=== PATIENT | female | born 1990 | race African-American/Black ===

== ENCOUNTER 2016-10-23 19:12 | Emergency (ER) | payer MEDICAID ==
[2016-10-23] MEDS ORDERED: DIPHENHYDRAMINE HCL 50 MG CAPSULE PO ONE (19:48)
[2016-10-23] MEDS ORDERED: PROCHLORPERAZINE MALEATE 10 MG TABLET PO ONE (19:48)
[2016-10-23] MEDS ORDERED: ONDANSETRON 4 MG TAB.RAPDIS PO ONE (19:49)
[2016-10-23] MEDS ORDERED: NAPROXEN 250 MG TABLET PO ONE (19:49)
--- NOTE | 2016-10-23 19:51 | ER Document Report ---
ED Medical Screen (RME) - General Chief Complaint: Headache >24 hrs old Stated Complaint: HEADACHE Notes: This 26-year-old obese female patient comes emergency room with a headache for the past 2 days. She noticed that her blood pressure was elevated. She had nausea and vomiting 2 today. She has felt dizzy the past 4 hours. She reports she does get headaches when her blood pressure goes up. Reviewing the prior visits her blood pressure is always elevated, only a little higher today than in the past. She does have a family history of hypertension. She has a blood pressure cuff at home but does not use it. She does not have a local medical doctor. The patient has the Mirena IUD. The left temporal and anterior forehead areas are quite tender to palpate. The right temporal area is less tender. There is not really any posterior cervical muscle tenderness to palpate. I have greeted and performed a rapid initial assessment of this patient. A comprehensive ED assessment and evaluation of the patient, analysis of test results and completion of the medical decision making process will be conducted by additional ED providers. TRAVEL OUTSIDE OF THE [place] IN LAST 30 DAYS: No - Related Data Allergies/Adverse Reactions: No Known Allergies Allergy (Verified 10/23/16 19:22) Home Medications: Current Home Medications No Home Medications 10/23/16 [History] Past Medical History Neurological Medical History: Denies: Hx Migraine Endocrine Medical History: Denies: Hx Diabetes Mellitus Type 1 Renal/ Medical History: Denies: Hx Peritoneal Dialysis - Immunizations Hx Diphtheria, Pertussis, Tetanus Vaccination: Yes Physical Exam - Vital signs Vitals: Temp Pulse Resp BP Pulse Ox 98.0 F 80 14 172/109 H 100 10/23/16 19:23 10/23/16 19:23 10/23/16 19:23 10/23/16 19:23 10/23/16 19:23 Course - Vital Signs Vital signs: Temp Pulse Resp BP Pulse Ox 98.0 F 80 14 172/109 H 100 10/23/16 19:23 10/23/16 19:23 10/23/16 19:23 10/23/16 19:23 10/23/16 19:23
[2016-10-23] MEDS ORDERED: NORMAL SALINE 1000 ML 1,000 ML IV ONE (20:29)
[2016-10-23] MEDS ORDERED: KETOROLAC TROMETHAMINE INJ/PF 30 MG/1 ML SDV IV ONE (20:29)
[2016-10-23] MEDS ORDERED: DIPHENHYDRAMINE HCL 50 MG/ML VIAL IV ONE (20:29)
[2016-10-23] MEDS ORDERED: PROCHLORPERAZINE EDISYLATE INJ 10 MG/2 ML VIAL IV ONE (20:29)
--- NOTE | 2016-10-23 20:31 | ER Document Report ---
ED General - General Chief Complaint: Headache >24 hrs old Stated Complaint: HEADACHE Notes: Patient is a 18-year-old female with past history of morbid obesity and hypertension who presents with a bifrontal headache that has been present for the past 2 days. She does describe it as a constant, dull, throbbing pain. Nothing improves the pain. States that loud sounds or moving worsens the pain. She has a history of similar headaches in the past. States the headache was gradual onset and got progressively worse after starting. She has not seen her primary care doctor regarding today's concerns. She denies any fever, confusion , neck pain, weakness or numbness. She has had associated vomiting and also notes she has had some diarrhea. TRAVEL OUTSIDE OF THE [place] IN LAST 30 DAYS: No - Related Data Allergies/Adverse Reactions: No Known Allergies Allergy (Verified 10/23/16 19:22) Home Medications: Current Home Medications No Home Medications 10/23/16 [History] Past Medical History - General Information source: Patient - Social History Smoking Status: Never Smoker Frequency of alcohol use: None Drug Abuse: None Lives with: Spouse/Significant other Family History: Reviewed & Not Pertinent Patient has suicidal ideation: No Patient has homicidal ideation: No Neurological Medical History: Denies: Hx Migraine Endocrine Medical History: Denies: Hx Diabetes Mellitus Type 1 Renal/ Medical History: Denies: Hx Peritoneal Dialysis - Immunizations Hx Diphtheria, Pertussis, Tetanus Vaccination: Yes Review of Systems - Review of Systems Notes: Constitutional: Negative for fever. HENT: Negative for sore throat. Eyes: Negative for visual changes. Cardiovascular: Negative for chest pain. Respiratory: Negative for shortness of breath. Gastrointestinal: Negative for abdominal pain, positive for vomiting Genitourinary: Negative for dysuria. Musculoskeletal: Negative for back pain. Skin: Negative for rash. Neurological: Positive for headaches, negative for weakness or numbness. 10 point ROS negative except as marked above and in HPI. Physical Exam - Vital signs Vitals: Temp Pulse Resp BP Pulse Ox 98.0 F 80 14 172/109 H 100 10/23/16 19:23 10/23/16 19:23 10/23/16 19:23 10/23/16 19:23 10/23/16 19:23 Interpretation: Hypertensive Notes: PHYSICAL EXAMINATION: GENERAL: Well-appearing, well-nourished and in no acute distress. HEAD: Atraumatic, normocephalic. EYES: Pupils equal round and reactive to light, extraocular movements intact, sclera anicteric, conjunctiva are normal. ENT: nares patent, oropharynx clear without exudates. Moist mucous membranes. NECK: Normal range of motion, supple without lymphadenopathy LUNGS: Breath sounds clear to auscultation bilaterally and equal. No wheezes rales or rhonchi. HEART: Regular rate and rhythm without murmurs ABDOMEN: Soft, nontender, normoactive bowel sounds. No guarding, no rebound. No masses appreciated. EXTREMITIES: Normal range of motion, no pitting or edema. No cyanosis. NEUROLOGICAL: Face symmetric. Tongue protrudes midline. Extraocular motions intact. Pupils are 2 mm and equally reactive. Normal speech, normal gait. 5 out of 5 strength in both the distal and proximal upper and lower extremities bilaterally. Sensation is grossly intact throughout. Finger to nose testing normal. Pronator drift normal. PSYCH: Normal mood, normal affect. SKIN: Warm, Dry, normal turgor, no rashes or lesions noted. Course - Re-evaluation Re-evalutation: 10/23/16 20:31 Presentation of a headache that appears to be most consistent with tension versus migrainous type headache. Headache was not maximal in onset, patient has no focal neurologic deficits, no nuchal rigidity, vital signs within normal limits, no papilledema, and patient is overall well in appearance. Based on clinical history and examination I do not suspect an acute subarachnoid hemorrhage, dural venous sinus thrombosis, acute meningitis, or intercranial mass. Given my low clinical suspicion for any acute life-threatening etiology, I do not feel advanced neuro imaging or laboratory testing is indicated at this time. Will proceed with headache cocktail and reassess. 10/23/16 21:14 Patient is now complete resolution of her headache. She is no longer vomiting has tolerated oral intake.At this time will discharge with return precautions and follow-up recommendations. Verbal discharge instructions given a the bedside and opportunity for questions given. Medication warnings reviewed. Patient is in agreement with this plan and has verbalized understanding of return precautions and the need for primary care follow-up in the next 24-72 hours. - Vital Signs Vital signs: Temp Pulse Resp BP Pulse Ox 98.6 F 80 17 162/94 H 100 10/23/16 21:21 10/23/16 21:21 10/23/16 21:21 10/23/16 21:21 10/23/16 21:21 - Laboratory Laboratory results interpreted by me: 10/23/16 21:00 Urine Protein 30 H Urine Ketones TRACE H Urine Ascorbic Acid 40 H Discharge - Discharge Clinical Impression: Headache Qualifiers: Headache type: unspecified Headache chronicity pattern: acute headache Intractability: not intractable Qualified Code(s): R51 - Headache Condition: Good Disposition: HOME, SELF-CARE Additional Instructions: You have been seen in the Emergency Department (ED) for a headache. Please use Tylenol (acetaminophen) or Motrin (ibuprofen) as needed for symptoms, but only as written on the box. As we have discussed, please follow up with your primary care doctor as soon as possible regarding today's ED visit and your headache symptoms. Call your doctor or return to the ED if you have a worsening headache, sudden and severe headache, confusion, slurred speech, facial droop, weakness or numbness in any arm or leg, extreme fatigue, or other symptoms that concern you.
[2016-10-23] MEDS ORDERED: HYDROMORPHONE HCL INJ/PF 2 MG/ML AMPULE ONE (20:40)
[2016-10-23 21:18] LABS: APPEARANCE,URINE SLIGHTLY-CLOUDY; BILIRUBIN,URINE NEGATIVE (NEGATIVE); GLUCOSE, URINE NEGATIVE (NEGATIVE); KETONES,URINE TRACE mg/dL (NEGATIVE); LEUKOCYTE ESTERASE,URINE NEGATIVE (NEGATIVE); NITRITE,URINE NEGATIVE (NEGATIVE); PROTEIN,URINE 30 mg/dL (NEGATIVE); UROBILINOGEN,URINE NEGATIVE mg/dL (<2.0)
[2016-10-23 21:28] VITALS: BP 162/94
== END 2016-10-23 21:28 | disposition home or self-care (01) ==
LOC: ER 19:12
DX: R51 Headache (principal); E66.01 Morbid (severe) obesity due to excess calories; I10 Essential (primary) hypertension
CPT/HCPCS: 99284; 96374; 96375; 81025; 81001; J1200; S0119; J1885; J0780; S0183; J7030

== ENCOUNTER 2017-03-19 08:14 | Emergency (ER) | payer OTHER ==
--- NOTE | 2017-03-19 08:58 | RADIOLOGY REPORT (SQ) ---
EXAM DESCRIPTION: KNEE RIGHT 3 VIEWS COMPLETED DATE/TIME: 03/19/2017 8:50 am REASON FOR STUDY: knee pain COMPARISON: None. NUMBER OF VIEWS: Three views. TECHNIQUE: AP, lateral, and sunrise patella radiographic images acquired of the right knee. LIMITATIONS: None. FINDINGS: MINERALIZATION: Normal. BONES: No acute fracture or dislocation. No worrisome bone lesions. JOINT: No suprapatellar knee joint effusion. On the sunrise view, there is mild lateral subluxation of the patella. SOFT TISSUES: No soft tissue swelling. No radio-opaque foreign body. OTHER: No other significant finding. IMPRESSION: Lateral subluxation of patella. No acute changes. TECHNICAL DOCUMENTATION: JOB ID: [id number] [employer]- All Rights Reserved
[2017-03-19] MEDS ORDERED: LIDOCAINE 5% (700 MG) TRANSDERMAL ADH..PATCH TP ONE (08:59)
[2017-03-19] MEDS ORDERED: IBUPROFEN 800 MG TABLET PO ONE (08:59)
--- NOTE | 2017-03-19 09:12 | ER Document Report ---
ED General - General Chief Complaint: Knee Injury Stated Complaint: FALL KNEE PAIN Time Seen by Provider: 03/19/17 08:26 TRAVEL OUTSIDE OF THE [place] IN LAST 30 DAYS: No - HPI Patient complains to provider of: Right knee pain Notes: Patient coming in for evaluation of right knee pain. Patient states she had a trip and fall at work injuring her knee patient states difficulty in bending her knee. Patient otherwise ambulatory and able ambulate to the ER. Patient denies any fevers chills nausea vomiting diarrhea denies any loss consciousness or any other traumatic injuries. - Related Data Allergies/Adverse Reactions: No Known Allergies Allergy (Verified 03/19/17 08:20) Past Medical History - Social History Smoking Status: Never Smoker Chew tobacco use (# tins/day): No Frequency of alcohol use: None Drug Abuse: None Family History: Reviewed & Not Pertinent Patient has suicidal ideation: No Patient has homicidal ideation: No Neurological Medical History: Denies: Hx Migraine Endocrine Medical History: Denies: Hx Diabetes Mellitus Type 1 Renal/ Medical History: Denies: Hx Peritoneal Dialysis Surgical Hx: Negative - Immunizations Hx Diphtheria, Pertussis, Tetanus Vaccination: Yes Review of Systems - Review of Systems Constitutional: No symptoms reported EENT: No symptoms reported Cardiovascular: No symptoms reported Respiratory: No symptoms reported Gastrointestinal: No symptoms reported Genitourinary: No symptoms reported Female Genitourinary: No symptoms reported Musculoskeletal: Other - Knee pain Skin: No symptoms reported Hematologic/Lymphatic: No symptoms reported Neurological/Psychological: No symptoms reported Physical Exam - Vital signs Vitals: Temp Pulse Resp BP Pulse Ox 97.7 F 90 16 177/117 H 98 03/19/17 08:20 03/19/17 08:20 03/19/17 08:20 03/19/17 08:20 03/19/17 08:20 Interpretation: Normal - General General appearance: Appears well, Alert - HEENT Head: Normocephalic, Atraumatic Eyes: Normal Pupils: PERRL - Respiratory Respiratory status: No respiratory distress Chest status: Nontender Breath sounds: Normal Chest palpation: Normal - Cardiovascular Rhythm: Regular Heart sounds: Normal auscultation Murmur: No - Abdominal Inspection: Normal Distension: No distension Bowel sounds: Normal Tenderness: Nontender Organomegaly: No organomegaly - Back Back: Normal, Nontender - Extremities General upper extremity: Normal inspection, Nontender, Normal color, Normal ROM , Normal temperature General lower extremity: Normal inspection, Nontender, Normal color, Normal temperature, Normal weight bearing. No: Normal ROM - Difficulty in bending and the patient can bend the knee is approximately 130. There is no pain of the right knee on anterior posterior valgus or varus stressing. There is slight bruising underneath the patella. There is pain to palpation of the patella, Medhat's sign - Neurological Neuro grossly intact: Yes Cognition: Normal Orientation: AAOx4 [place] Scale Eye Opening: Spontaneous [place] Scale Verbal: Oriented [place] Scale Motor: Obeys Commands [place] Scale Total: 15 Speech: Normal Motor strength normal: LUE, RUE, LLE, RLE Sensory: Normal - Psychological Associated symptoms: Normal affect, Normal mood - Skin Skin Temperature: Warm Skin Moisture: Dry Skin Color: Normal Course - Re-evaluation Re-evalutation: 03/19/17 11:21 Subluxation of the patella seen on x-ray of the is no signs of dislocation. Patient will be discharged home pain medication placed in Darryl wrap follow-up orthopedics as needed. - Vital Signs Vital signs: Temp Pulse Resp BP Pulse Ox 97.5 F 85 16 170/85 H 100 03/19/17 09:39 03/19/17 09:39 03/19/17 09:39 03/19/17 09:39 03/19/17 09:39 Discharge - Discharge Clinical Impression: Subluxation of patella Qualifiers: Encounter type: initial encounter Laterality: right Qualified Code(s): S83.001A - Unspecified subluxation of right patella, initial encounter Knee pain, acute Qualifiers: Laterality: right Qualified Code(s): M25.561 - Pain in right knee Hypertension Qualifiers: Hypertension type: essential hypertension Qualified Code(s): I10 - Essential ( primary) hypertension Condition: Good Disposition: HOME, SELF-CARE Instructions: Darryl Wrap ([facility]), Ice & Elevation ([facility]), Suspected Internal Knee Injury ([facility]), Sprained Knee ([facility]) Additional Instructions: Please elevate and ice her knee. I would recommend following up with your primary care physician or the orthopedic doctor provided. Return to the ER symptoms worsen. Follow-up with your primary care physician take medications as prescribed. More likely sprained her knee causing a injury to the ligaments this will take time approximately 1-2 weeks to heal. Prescriptions: Ibuprofen [Motrin 600 Mg Tablet] 600 mg PO TID #30 tablet Tramadol HCl [Ultram 50 mg Tablet] 50 mg PO ASDIR PRN #20 tablet PRN Reason: Forms: Elevated Blood Pressure, Return to Work Referrals: DIANA OWENS MD [ACTIVE STAFF] - Follow up as needed
[2017-03-19 09:40] VITALS: BP 170/85
== END 2017-03-19 09:40 | disposition home or self-care (01) ==
LOC: ER 08:14
DX: S83.001A Unspecified subluxation of right patella, initial encounter (principal); M25.561 Pain in right knee; W01.0XXA Fall on same level from slipping, tripping and stumbling without subsequent striking against object, initial encounter; Y99.0 Civilian activity done for income or pay; I10 Essential (primary) hypertension
CPT/HCPCS: 99283; L1830

== ENCOUNTER 2018-02-18 23:26 | Emergency (ER) | payer SELFPAY ==
[2018-02-19] MEDS ORDERED: DEXAMETHASONE SOD PHOS INJ 10 MG/1 ML VIAL IM ONE (02:14)
[2018-02-19] MEDS ORDERED: AMOXICILLIN TRIHYDRATE 500 MG CAPSULE PO ONE (02:14)
--- NOTE | 2018-02-19 02:26 | ER Document Report ---
HPI - HPI Patient complains to provider of: sore throat, left ear pain, congestion Pain Level: 5 Context: Patient is a 27-year-old female that comes to the emergency department for chief complaint of 4 days of sore throat, congestion, and now she has developed left ear pain. She states she thinks she had a fever and chills initially but not now. She denies cough or shortness of breath. She denies nausea or vomiting. She does not smoke. She denies any daily medications other than trying several lgfd-qmw-zzfcewz remedies. 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 LMP within the past month. - REPRODUCTIVE Reproductive: DENIES: : Past Medical History - General Information source: Patient - Social History Smoking Status: Never Smoker Drug Abuse: None Lives with: Family Family History: Reviewed & Not Pertinent - Medical History Medical History: Negative Neurological Medical History: Denies: Hx Migraine Endocrine Medical History: Denies: Hx Diabetes Mellitus Type 1 Renal/ Medical History: Denies: Hx Peritoneal Dialysis Surgical Hx: Negative - Immunizations Immunizations up to date: Yes Hx Diphtheria, Pertussis, Tetanus Vaccination: Yes Vertical Provider Document - CONSTITUTIONAL General Appearance: WD/WN, No Apparent Distress - INFECTION CONTROL TRAVEL OUTSIDE OF THE [place] IN LAST 30 DAYS: No - HEENT HEENT: Atraumatic, Normocephalic. negative: Normal ENT Exam - Left otitis media noted with purulent effusion. ENT examination otherwise unremarkable with only minimal erythema of the posterior pharynx. Mild nasal congestion without sinus tenderness. - NECK Neck: Other - Mild bilateral anterior cervical adenopathy - RESPIRATORY Respiratory: Breath Sounds Normal, No Respiratory Distress - CARDIOVASCULAR Cardiovascular: Regular Rate, Regular Rhythm - GI/ABDOMEN Gastrointestinal: Abdomen Soft, Abdomen Non-Tender - BACK Back: Normal Inspection - NEURO Level of Consciousness: Awake, Alert, Appropriate Course - Re-evaluation Re-evalutation: Patient with congestion, unremarkable oropharyngeal exam, left otitis media. Consistent with virus and progressing symptoms. She has mild lymphadenopathy anteriorly. Treated with dexamethasone, amoxicillin, discussed follow-up and return precautions, discussed [id number] medications, patient states understanding and agreement. - Vital Signs Vital signs: Temp Pulse Resp BP Pulse Ox 98.5 F 95 16 156/102 H 100 02/18/18 23:57 02/18/18 23:57 02/18/18 23:57 02/18/18 23:57 02/18/18 23:57 Discharge - Discharge Clinical Impression: Sore throat, Lymphadenopathy, Sinus congestion Left otitis media Qualifiers: Otitis media type: suppurative Chronicity: acute Recurrence: not specified as recurrent Spontaneous tympanic membrane rupture: without spontaneous rupture Qualified Code(s): H66.002 - Acute suppurative otitis media without spontaneous rupture of ear drum, left ear Condition: Stable Disposition: HOME, SELF-CARE Additional Instructions: Your examination is consistent with probably an initial virus and now swollen lymph nodes and an ear infection in addition to this. Take antibiotic as prescribed to completion, you have been treated with dexamethasone here, I recommend Flonase. You can take kbkz-hoc-qxasgdw remedies such as decongestants, antihistamines, Tylenol, ibuprofen, etc. Drink plenty fluids and rest. Your blood pressure was elevated today, this needs to be rechecked with primary care, you may need antihypertensive management. Follow-up with primary care. Return if you worsen including difficulty breathing, swelling of the ear, vomiting, spiking fevers, or any other concerning or worsening symptoms. Prescriptions: Amoxicillin Trihydrate [Amoxil 875 mg Tablet] 1 tab PO BID #20 tablet Fluticasone Propionate [Flonase Nasal [place] 50 Mcg/[place] 16 gm] 2 sprays NASL Q12 #1 inhaler Forms: Return to Work
[2018-02-19 03:04] VITALS: BP 184/120
== END 2018-02-19 03:18 | disposition home or self-care (01) ==
LOC: ER 23:26
DX: J02.9 Acute pharyngitis, unspecified (principal); H66.002 Acute suppurative otitis media without spontaneous rupture of ear drum, left ear; R59.0 Localized enlarged lymph nodes; R09.81 Nasal congestion; H92.02 Otalgia, left ear
CPT/HCPCS: 99283; 96372; J1100

== ENCOUNTER 2018-06-21 00:10 | Emergency (ER) | payer SELFPAY ==
[2018-06-21] MEDS ORDERED: METOCLOPRAMIDE HCL INJ/PF 10 MG/2 ML SDV IV ONE (00:22)
--- NOTE | 2018-06-21 00:41 | ER Document Report ---
ED General - General Chief Complaint: Headache >24 hrs old Stated Complaint: HEADACHE Time Seen by Provider: 06/21/18 00:21 Notes: Patient is a 28-year-old female with a past medical history of headaches and morbid obesity who presents with 24 hours of a global headache. She describes it as a diffuse, throbbing, aching headache. States that it started gradually and has gotten progressively worse over that period of time. She states associated nausea and photophobia. She has tried multiple dnwi-hzl-xxnzkoh medications without any relief. Lights and sounds worsen her pain. Notes a long-standing history of similar headaches in the past. She has required visits to the emergency department the past for treatment of her headaches. She has not contacted her primary care doctor regarding today's concerns. She denies any focal weakness or numbness, fever, neck pain or altered mental status. TRAVEL OUTSIDE OF THE [place] IN LAST 30 DAYS: No - Related Data Allergies/Adverse Reactions: No Known Allergies Allergy (Verified 03/19/17 08:20) Past Medical History - General Information source: Patient - Social History Smoking Status: Never Smoker Frequency of alcohol use: None Drug Abuse: None Lives with: Family Family History: Reviewed & Not Pertinent Neurological Medical History: Denies: Hx Migraine Endocrine Medical History: Denies: Hx Diabetes Mellitus Type 1 Renal/ Medical History: Denies: Hx Peritoneal Dialysis - Immunizations Immunizations up to date: Yes Hx Diphtheria, Pertussis, Tetanus Vaccination: Yes Review of Systems - Review of Systems Notes: Constitutional: Negative for fever. HENT: Negative for sore throat. Eyes: Negative for visual changes. Cardiovascular: Negative for chest pain. Respiratory: Negative for shortness of breath. Gastrointestinal: Negative for abdominal pain, vomiting or diarrhea. Genitourinary: Negative for dysuria. Musculoskeletal: Negative for back pain. Skin: Negative for rash. Neurological: Positive for headache 10 point ROS negative except as marked above and in HPI. Physical Exam - Vital signs Vitals: Temp Pulse Resp BP Pulse Ox 97.7 F 86 20 180/110 H 97 06/21/18 00:16 06/21/18 00:16 06/21/18 00:16 06/21/18 00:16 06/21/18 00:16 Interpretation: Hypertensive Notes: PHYSICAL EXAMINATION: GENERAL: Well-appearing, well-nourished and in no acute distress. HEAD: Atraumatic, normocephalic. EYES: Pupils equal round and reactive to light, extraocular movements intact, sclera anicteric, conjunctiva are normal. ENT: nares patent, oropharynx clear without exudates. Moist mucous membranes. NECK: Normal range of motion, supple without lymphadenopathy LUNGS: Breath sounds clear to auscultation bilaterally and equal. No wheezes rales or rhonchi. HEART: Regular rate and rhythm without murmurs ABDOMEN: Soft, nontender, normoactive bowel sounds. No guarding, no rebound. No masses appreciated. EXTREMITIES: Normal range of motion, no pitting or edema. No cyanosis. NEUROLOGICAL: Face symmetric. Tongue protrudes midline. Extraocular motions intact. Pupils are 2 mm and equally reactive. Normal speech, normal gait. 5 out of 5 strength in both the distal and proximal upper and lower extremities bilaterally. Sensation is grossly intact throughout. Finger to nose testing normal. Pronator drift normal. PSYCH: Normal mood, normal affect. SKIN: Warm, Dry, normal turgor, no rashes or lesions noted. Course - Re-evaluation Re-evalutation: 06/21/18 00:41 Presentation of a headache that appears to be most consistent with tension versus migrainous type headache. Headache was not maximal in onset, patient has no focal neurologic deficits, no nuchal rigidity, vital signs within normal limits, no papilledema, and patient is overall well in appearance. Based on clinical history and examination I do not suspect an acute subarachnoid hemorrhage, dural venous sinus thrombosis, acute meningitis, or intercranial mass. Given my low clinical suspicion for any acute life-threatening etiology, I do not feel advanced neuro imaging or laboratory testing is indicated at this time. Patient had complete resolution of her headache after receiving 10 mg of metoclopramide. At this time will discharge with return precautions and follow- up recommendations. Verbal discharge instructions given a the bedside and opportunity for questions given. Medication warnings reviewed. Patient is in agreement with this plan and has verbalized understanding of return precautions and the need for primary care follow-up in the next 24-72 hours. - Vital Signs Vital signs: Temp Pulse Resp BP Pulse Ox 97.7 F 86 20 180/110 H 97 06/21/18 00:16 06/21/18 00:16 06/21/18 00:16 06/21/18 00:16 06/21/18 00:16 Discharge - Discharge Clinical Impression: Migraine headache Qualifiers: Migraine type: unspecified Status migrainosus presence: with status migrainosus Intractability: not intractable Qualified Code(s): G43.901 - Migraine, unspecified, not intractable, with status migrainosus Condition: Good Disposition: HOME, SELF-CARE Additional Instructions: You were seen today for a migraine headache. Please follow-up with your primary care doctor regarding today's ED visit. Return to emergency department immediately if you develop a headache that gets to its maximum severity within 20 minutes of onset, you pass out, you develop weakness, numbness, changes in your vision, become unable to keep any fluids down for more than 12 hours, or develop a fever greater than 100.4 degrees Fahrenheit. If you develop a similar migraine headache in the future I recommend that you immediately take 600 mg of ibuprofen and 50 mg of Benadryl and go to sleep as quickly as possible. This can often prevent your migraine headache from becoming severe.
[2018-06-21 01:04] VITALS: BP 162/102
== END 2018-06-21 01:06 | disposition home or self-care (01) ==
LOC: ER 00:10
DX: G43.901 Migraine, unspecified, not intractable, with status migrainosus (principal); R11.0 Nausea; E66.01 Morbid (severe) obesity due to excess calories
CPT/HCPCS: 99284; 96374; J2765

== ENCOUNTER 2018-12-28 09:19 | Day surgery (SDC) | payer MEDICAID ==
[~2018-12-28 09:19] MED LIST: PROPOFOL INJ 200 MG/20 ML VIAL IV ONE
[2018-12-28] MEDS ORDERED: PROPOFOL INJ 200 MG/20 ML VIAL IV ONE (10:59)
[2018-12-28 11:48] VITALS: BP 150/76
--- NOTE | 2018-12-28 14:37 | Operative Report ---
Operative Report DATE OF SURGERY: 12/28/18 Operative Report: The risks, benefits and alternatives of the procedure including the risk of bleeding, perforation requiring surgery have been explained to the patient in detail and informed consent has been obtained. The patient is placed in a left, lateral decubital position. Timeout was called. Propofol medication is administered. Rectal examination is done which did not reveal any masses, tears or fissures. An Olympus videoscope was introduced into the patient's rectum. The scope was then carefully advanced all the way to the cecum. The cecum was identified by the usual anatomical landmarks including the ileocecal valve as well as the appendiceal office. Photodocumentation is obtained. The scope was then sequentially pulled back via the various segments of the colon including the ascending colon, hepatic flexure, transverse colon, splenic flexure, wendy cending colon and finally into the rectosigmoid portions of the colon. Retroflexion maneuvers performed. PREOPERATIVE DIAGNOSIS: Change in bowel habits POSTOPERATIVE DIAGNOSIS: Right colon inflammation status post biopsy. Left- sided colon inflammation status post biopsy rule out Crohn's disease OPERATION: Colonoscopy with biopsy SURGEON: CRUZ WHITAKER ANESTHESIA: LMAC TISSUE REMOVED OR ALTERED: As noted above. COMPLICATIONS: None. ESTIMATED BLOOD LOSS: None. INTRAOPERATIVE FINDINGS: As noted above. PROCEDURE: Patient tolerated the procedure well. No immediate postprocedure complications are noted. Patient is discharged in good condition. Discharge date 12/28/2018. Discharge diet: Regular. Discharge activity: Regular. 2 to 3-week follow-up to discuss findings. Patient is instructed call the office or proceed to the emergency room should there be any further questions. wait on the pathology.
== END 2018-12-28 11:50 | disposition home or self-care (01) ==
LOC: END 09:19
PROVIDERS: ATTEND Internal Medicine Gastroenterology
DX: K52.9 Noninfective gastroenteritis and colitis, unspecified (principal); K64.8 Other hemorrhoids
CPT/HCPCS: 45380; 88305 ×2; 00811; J2704; 811

== ENCOUNTER → 2019-01-11 | Outpatient (CLI) | payer MEDICAID ==
--- NOTE | 2019-01-11 15:07 | WOMENS IMAGING REPORT ---
EXAM DESCRIPTION: TRANSVAGINAL ULTRASOUND COMPLETED DATE/TIME: 01/11/2019 2:08 pm REASON FOR STUDY: N92.6 IRREGULAR MENSTRUATION, UNSPECIFIED COMPARISON: None. TECHNIQUE: Dynamic and static grayscale images acquired of the pelvis via transvaginal approach and recorded on PACS. Additional selected color Doppler and spectral images recorded. LIMITATIONS: None. FINDINGS: UTERUS: Contour normal. No mass. ENDOMETRIAL STRIPE: No focal or generalized thickening. No masses. CERVIX: No nabothian cysts. RIGHT OVARY AND DOPPLER: Normal size. No worrisome masses. Normal arterial vascular flow without evid ence for torsion. LEFT OVARY AND DOPPLER: Normal size. No worrisome masses. Normal arterial vascular flow without evide nce for torsion. FREE FLUID: None noted. OTHER: No other significant finding. IMPRESSION: NORMAL TRANSVAGINAL PELVIC ULTRASOUND. TECHNICAL DOCUMENTATION: JOB ID: [id number] [employer]- All Rights Reserved Rev-12/05 Reading location - IP/workstation name: [email or web address]
== END ==
LOC: WI 14:07
PROVIDERS: ATTEND Obstetrics & Gynecology Gynecology
DX: N92.6 Irregular menstruation, unspecified (principal)
CPT/HCPCS: 76830

== ENCOUNTER → 2019-02-09 | Day surgery (SDC) | payer MEDICAID ==
[2019-02-02 11:18] LABS: HEMATOCRIT 36.3 % (36.0-47.0); HEMOGLOBIN 11.9 g/dL (12.0-15.5); MEAN CORPUSCULAR HEMOGLOBIN 27.2 pg (27.0-33.4); MEAN CORPUSCULAR HGB CONC 32.6 g/dL (32.0-36.0); MEAN CORPUSCULAR VOLUME 83 fl (80-97); PLATELET COUNT 360 10^3/uL (150-450); RED BLOOD COUNT 4.37 10^6/uL (3.72-5.28); RED CELL DISTRIBUTION WIDTH 13.4 % (11.5-14.0); WHITE BLOOD COUNT 5.2 10^3/uL (4.0-10.5)
[2019-02-02 11:42] LABS: ALANINE AMINOTRANSFERASE 20 U/L (9-52); ALBUMIN 3.9 g/dL (3.5-5.0); ALKALINE PHOSPHATASE 69 U/L (38-126); ANION GAP 7 (5-19); ASPARTATE AMINO TRANSFERASE 16 U/L (14-36); BILIRUBIN,DIRECT 0.2 mg/dL (0.0-0.4); BILIRUBIN,TOTAL 0.3 mg/dL (0.2-1.3); BLOOD UREA NITROGEN 9 mg/dL (7-20); CALCIUM 9.1 mg/dL (8.4-10.2); CARBON DIOXIDE 28 mmol/L (22-30); CHLORIDE 103 mmol/L (98-107); GLUCOSE 108 mg/dL (75-110); POTASSIUM 3.9 mmol/L (3.6-5.0); TOTAL PROTEIN 7.2 g/dL (6.3-8.2)
--- NOTE | 2019-02-02 19:11 | EKG REPORT ---
SEVERITY:- ABNORMAL ECG - SINUS RHYTHM PROBABLE LEFT VENTRICULAR HYPERTROPHY : Confirmed by: Nitesh Jacobson MD 02-Feb-2019 19:11:10
[~2019-02-09] MED LIST changes: +ACETAMINOPHEN 325 MG TABLET ONE; +ACETAMINOPHEN 325 MG TABLET PO PRN; +CEFOXITIN SODIUM 2 GM in DEXTROSE 5%-WATER 100 ML IV PRN; +METOPROLOL TARTRATE 25 MG TABLET ONE; +MIDAZOLAM 2 MG/2 ML INJ ONE; +PREGABALIN 50 MG CAPSULE ONE; +PREGABALIN 50 MG CAPSULE PO PRN; -PROPOFOL INJ 200 MG/20 ML VIAL IV ONE
[2019-02-09 13:17] VITALS: BP 160/112
== END ==
LOC: OROUT 12:30
PROVIDERS: ATTEND Surgery
DX: I10 Essential (primary) hypertension (principal); R94.31 Abnormal electrocardiogram [ECG] [EKG]
CPT/HCPCS: 93005; 36415 ×2; 84702; 85027; 80053; 93010; J3490 ×3; J2250; J0694; J7060

== ENCOUNTER → 2019-02-19 | Outpatient (CLI) | payer MEDICAID ==
[2019-02-19 11:24] LABS: CHOLESTEROL 176.92 mg/dL (0-200); TRIGLYCERIDES 124 mg/dL (<150)
[2019-02-19 11:35] LABS: DIRECT LDL 110 mg/dL (<100)
== END ==
LOC: OD 10:00
PROVIDERS: ATTEND Internal Medicine Cardiovascular Disease
DX: R07.9 Chest pain, unspecified (principal)
CPT/HCPCS: 36415; 80061; 83735; 84443

== ENCOUNTER 2019-03-01 12:36 | Emergency (ER) | payer MEDICAID ==
--- NOTE | 2019-03-01 13:41 | ER Document Report ---
ED Medical Screen (RME) - General Chief Complaint: Headache Stated Complaint: HEADACHE Time Seen by Provider: 03/01/19 13:32 Primary Care Provider: LUZ BROWN MD [Primary Care Provider] - Follow up as needed Notes: HPI: 28-year-old female with history of hypertension, morbid obesity, and headaches, here for acute exacerbation of her chronic headaches for the last 3 days. She states it feels like her usual headache she gets that she has to come to the ER to get relief for. Denies photophobia or phonophobia. She had a few episodes of nonbloody nonbilious vomiting that is typical of her usual headache symptoms. She states the headache is located on the left side of her head also typical of her usual headaches. States the pain was not controlled with Aleve this morning she came in for evaluation. She states her blood pressures been running a little high despite taking her blood pressure medication as prescribed. She denies any change in her caffeine intake. Not the worst headache of her life. She denies sudden onset. He has never seen a neurologist. States medication they usually give her here in the ER resolves her headache and she is requesting these again however she does not remember what they are called. She has had a negative CT scan in the past she tells me however I do not have access to these records to review. No blood thinners. No fall or trauma. No change in neurologic. No other complaints at this time. ROS neg to include 10 systems, unless mentioned in the hpi. PE:>>>> PHYSICAL_EXAM: GENERAL_APPEARANCE: well_nourished, alert, cooperative, no_acute_distress, mild_obvious_discomfort. pleasant, morbidly obese young black female who appears slightly older than stated age smiling, speaking in full sentences, in no sign of pain or resp distress, VITALS: reviewed, see vital signs table. HEAD: no_swelling\tenderness on the head. normocephalic. atraumatic. no ceja signs. no raccoons eyes. EYES: PERRL, EOMI, conjunctiva_clear. NOSE: no_nasal_discharge. MOUTH: (-)decreased moisture. THROAT: no_tonsilar_inflammation, no_airway_obstruction. no_lymphadenopathy NECK: supple, no_neck_tenderness, full rom. full strength. no meningeal signs. no sign of central cord syndrome. BACK: no_back_tenderness. CHEST_WALL: no_chest_tenderness. no overlying skin changes LUNGS: no_wheezing, ctab (-)accessory muscle use, good air exchange bilateral. HEART: normal_rate, normal_rhythm, ABDOMEN: normal_BS, soft, no_abd_tenderness, (-)guarding, (-)rebound, no distension or peritoneal signs. no cva ttp EXTREMITIES: strength 5/5 in all_extremities, good pulses in all_extremities, no_swelling\tenderness in the extremities, no_edema. full rom. normal gait. good pulses. brisk cap refill. 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 NEURO: motor and sensation intact, SKIN: warm, dry, good_color, no_rash. MENTAL_STATUS: speech_clear, oriented_X_3, normal_affect, responds_appropriately to questions. MDM: I have ordered labs and initial work-up and patient will be transferred to the main ER for further work-up. I have greeted and performed a rapid initial assessment of this patient. A comprehensive ED assessment and evaluation of the patient, analysis of test re sults and completion of medical decision making process will be conducted by an additional ED providers. Documentation achieved through voice recording which my lead to some occasional accidental typographical errors. Extensive efforts have been made to proof read documentation to make sure these are the least as possible Temp Pulse Resp BP Pulse Ox 03/01/19 13:01 98.2 F 69 18 186/91 H 98 Category Date Time Status Diphenhydramine HCl [Benadryl Inj 50 mg/1 ml Vial] Med 03/01/19 13:50 Once 50 mg IM NOW ONE Ketorolac Tromethamine [Toradol Inj/Pf 60 mg/2 ml Sdv] Med 03/01/19 13:49 Once 60 mg IM NOW ONE Metoclopramide HCl [Reglan Inj/Pf 10 mg/2 ml Sdv] Med 03/01/19 13:49 Once 10 mg IV NOW ONE Category Date Time Status Diphenhydramine HCl [Benadryl Inj 50 mg/1 ml Vial] Med 03/01/19 13:50 Once 50 mg IM NOW ONE Ketorolac Tromethamine [Toradol Inj/Pf 60 mg/2 ml Sdv] Med 03/01/19 13:49 Once 60 mg IM NOW ONE Metoclopramide HCl [Reglan Inj/Pf 10 mg/2 ml Sdv] Med 03/01/19 13:54 Once 10 mg IM NOW ONE Metoclopramide HCl [Reglan Inj/Pf 10 mg/2 ml Sdv] Med 03/01/19 13:49 Stop Req 10 mg IV NOW ONE TRAVEL OUTSIDE OF THE [place] IN LAST 30 DAYS: No - Related Data Allergies/Adverse Reactions: No Known Allergies Allergy (Verified 02/09/19 13:08) Past Medical History - Social History Chew tobacco use (# tins/day): No Frequency of alcohol use: None Drug Abuse: None - Past Medical History Cardiac Medical History: Denies: Hx Coronary Artery Disease, Hx Heart Attack, Hx Hypertension Pulmonary Medical History: Denies: Hx Asthma, Hx Bronchitis, Hx COPD, Hx Pneumonia Neurological Medical History: Denies: Hx Cerebrovascular Accident, Hx Migraine, Hx Seizures Endocrine Medical History: Denies: Hx Diabetes Mellitus Type 1 Renal/ Medical History: Denies: Hx Peritoneal Dialysis Musculoskeltal Medical History: Denies Hx Arthritis - Immunizations Immunizations up to date: Yes Hx Diphtheria, Pertussis, Tetanus Vaccination: Yes Physical Exam - Vital signs Vitals: Temp Pulse Resp BP Pulse Ox 98.2 F 69 18 186/91 H 98 03/01/19 13:01 03/01/19 13:01 03/01/19 13:01 03/01/19 13:01 03/01/19 13:01 Course - Vital Signs Vital signs: Temp Pulse Resp BP Pulse Ox 98.2 F 69 18 186/91 H 98 03/01/19 13:01 03/01/19 13:01 03/01/19 13:01 03/01/19 13:01 03/01/19 13:01 Doctor's Discharge - Discharge Referrals: LUZ BROWN MD [Primary Care Provider] - Follow up as needed
[2019-03-01] MEDS ORDERED: KETOROLAC TROMETHAMINE 60 MG/2 ML SDV IM ONE (13:49)
[2019-03-01] MEDS ORDERED: METOCLOPRAMIDE HCL INJ/PF 10 MG/2 ML SDV IV ONE (13:49)
[2019-03-01] MEDS ORDERED: DIPHENHYDRAMINE HCL 50 MG/ML VIAL IM ONE (13:50)
[2019-03-01] MEDS ORDERED: METOCLOPRAMIDE HCL INJ/PF 10 MG/2 ML SDV IM ONE (13:54)
--- NOTE | 2019-03-01 16:08 | ER Document Report ---
HPI - HPI Patient complains to provider of: headache Time Seen by Provider: 03/01/19 13:32 Onset/Duration: Gradual Quality of pain: Achy Severity: Moderate Pain Level: 3 Context: 28-year-old female with a history of hypertension, morbid obesity, and headaches, here for acute exacerbation of her chronic headaches for the last 3 days. She states it feels like her usual exacerbations of her chronic headaches that she some times gets and that she has to come to the ER to get relief for. states they usually give her a "migraine cocktail" and that resolves sx. Denies photophobia or phonophobia. She had a few episodes of nonbloody nonbilious vomiting that is also typical of her usual headache symptoms. She states the headache is located on the left side of her head also typical of her usual headaches. States the pain was not controlled with Aleve this morning so she came in for evaluation. She states her blood pressure has been running a little high despite taking her blood pressure medication as prescribed. She denies any change in her caffeine intake. Not the worst headache of her life. She denies sudden onset. He has never seen a neurologist. States medication they usually give her here in the ER resolves her headache and she is requesting these again however she does not remember what they are called. She has had a negative CT scan in the past she tells me however I do not have access to these records to review. No blood thinners. No fall or trauma. No change in neurologic. she hasn't taken anything else for her sx. no other accompanied sx. No other complaints at this time. Similar symptoms previously: Yes Recently seen / treated by doctor: No - ROS Systems Reviewed and Negative: Yes All other systems reviewed and negative - to include 10 systems, unless mentioned in the hpi - REPRODUCTIVE Reproductive: DENIES: : Past Medical History - General Information source: Patient - Social History Smoking Status: Never Smoker Chew tobacco use (# tins/day): No Frequency of alcohol use: None Drug Abuse: None Family History: Reviewed & Not Pertinent Patient has suicidal ideation: No Patient has homicidal ideation: No - Past Medical History Cardiac Medical History: Denies: Hx Coronary Artery Disease, Hx Heart Attack, Hx Hypertension Pulmonary Medical History: Denies: Hx Asthma, Hx Bronchitis, Hx COPD, Hx Pneumonia Neurological Medical History: Denies: Hx Cerebrovascular Accident, Hx Migraine, Hx Seizures Endocrine Medical History: Denies: Hx Diabetes Mellitus Type 1 Renal/ Medical History: Denies: Hx Peritoneal Dialysis Musculoskeletal Medical History: Denies Hx Arthritis - Immunizations Immunizations up to date: Yes Hx Diphtheria, Pertussis, Tetanus Vaccination: Yes Vertical Provider Document - CONSTITUTIONAL Exam Limitations: No Limitations Notes: GENERAL_APPEARANCE: well_nourished, alert, cooperative, mild obvious discomfort. Pleasant, obese young black female, smiling, speaking in full sentences, in no sign of resp distress, easily sitting up. appears uncomfortable but not toxic VITALS: reviewed, see vital signs table. HEAD: normocephalic and atraumatic, no raccoon eyes, no ceja signs. no swelling or ttp. EARS: canals_clear_bilat, TMs_clear, no_discharge_from_ears. no hemotympanum EYES: EOMI without pain, conjunctiva_clear. PERRL, eyelids wnl. no drainage. no ttp or crepitation of the orbits. no sign of orbital/periorbital cellulitis. no hyphema. mild photophobia MOUTH: no_lacerations inside_mouth. no broken teeth. no tmj clicking or ttp. pharynx wnl. tongue protrudes midline. no drooling, tripoding, voice change, or stridor, no thrush or oral lesions. no tongue or lip swelling. NOSE: no drainage or epistaxis NECK: no_swelling\\tenderness on the neck. no midline bony tenderness. no step offs or deformities. full rom. full strength. no meningeal signs. no sign of central cord syndrome. no nuchal rigidity. neg kernig. neg brudinski. HEART: normal_rate, normal_rhythm, LUNGS: ctab. no chest wall ttp. no overlying skin changes. no flail chest or crepitation. ABDOMEN: normal_BS, soft, no_abd_tenderness, no rebound, guarding, distension, or peritoneal signs. no cva ttp. no overlying skin changes. BACK: no midline bony tenderness. no step offs or deformities RECTAL: deferred, however, no sign of loss of bowel or bladder or soiling of clothing. EXTREMITIES: strength 5/5 in all_extremities, good pulses all_extremities, no_abrasions\\lacerations in the extremities, no_swelling\\tenderness in the extremities. full rom. normal gait. 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 brisk cap refill. no shortening or rotation of the limbs or other signs of deformities unless othe rwise noted. SKIN: warm, dry, good_color. no other grossly visible overlying skin changes or signs of trauma unless otherwise noted. NEURO: reflexes symmetric throughout, cranial nerves 2 - 12 intact, motor_intact, sensory_intact. cerebellar function intact GLASCOW_COMA_SCORE: (adult) - eyes_open_spontaneously_4, verbal_converses_and_oriented_5, motor_obeys_commands_6, glasgow_coma_total_15, MENTAL_STATUS: speech_clear, oriented_X_3, responds_appropriately to questions. - INFECTION CONTROL TRAVEL OUTSIDE OF THE [place] IN LAST 30 DAYS: No Course - Re-evaluation Re-evalutation: pt here for an acute exacerbation of one of her chronic archer's. nothing different. ongoing for 3 days. resolved with meds listed. pt feels back to baseline, was resting quietly on [id number] awakens to voice. thanks me for making her feel better. requesting dc and a work note. tolerating po. denies any sx at dc. bp improved. advised to have this rechecked at pcp as it was a little high today. advised low salt diet. pt denies hitting her head or any trauma so no imagin was done along with her story being consistent with her usual archer's. advised tylenol or motrin prn headaches at home. she has no uri sx. serial abd exams remain benign. advised to f/u with pcp/neuro in 1-2 days. return for any worsening symptoms. vss. well appearing. satting well on ra. neurononfocal. pt understands and agrees to plan. On reexam, pt improved with tx listed and had resolution of her sx. remained stable. nontoxic. well appearing. pain controlled. tolerating po. requesting to go home. remains neurononfocal. case discussed with ER Attending, Dr. Leal, who directed and agrees with plan of care and advised no further workup indicated at this time and pt is stable for dc home with close f/u with pcp/specialist. Documentation achieved through voice recording which my lead to some occasional accidental typographical errors. Extensive efforts have been made to proof read documentation to make sure these are the least as possible. - Vital Signs Vital signs: Temp Pulse Resp BP Pulse Ox 98.2 F 69 18 186/91 H 98 03/01/19 13:01 03/01/19 13:01 03/01/19 13:01 03/01/19 13:01 03/01/19 13:01 - Diagnostic Test Radiology reviewed: Image reviewed, Reports reviewed Discharge - Discharge Clinical Impression: Headache Qualifiers: Headache type: unspecified Headache chronicity pattern: acute headache Intractability: not intractable Qualified Code(s): R51 - Headache Disposition: HOME, SELF-CARE Instructions: Headache ([facility]) Additional Instructions: Follow-up with PCP/neuro in 1 to 2 days. Return for any worsening symptoms. tylenol or motrin as needed for any pain, drink plenty of fluids. Referrals: LUZ BROWN MD [EMERITUS] - Follow up in 3-5 days KATIE BOSTON MD [NO LOCAL MD] - Follow up as needed
[2019-03-01 16:18] VITALS: BP 156/89
== END 2019-03-01 16:18 | disposition home or self-care (01) ==
LOC: ER 12:36
DX: R51 Headache (principal); E66.01 Morbid (severe) obesity due to excess calories; I10 Essential (primary) hypertension
CPT/HCPCS: 99283; 96372; J1200; J1885; J2765

== ENCOUNTER 2019-09-27 15:10 | Emergency (ER) | payer SELFPAY ==
--- NOTE | 2019-09-27 15:22 | ER Document Report ---
ED Medical Screen (RME) - General Chief Complaint: Abdominal Pain Stated Complaint: ABDOMINAL PAIN Time Seen by Provider: 09/27/19 15:19 Primary Care Provider: LUZ BROWN MD [Primary Care Provider] - Follow up as needed Mode of Arrival: Ambulatory Information source: Patient Notes: 1-year-old female presented to ED for complaint of left lower abdominal pain. She states she does have some nausea but no vomiting no diarrhea. Denies use of cigarettes alcohol or drugs. She is alert oriented respirations regular nonlabored speaking in full sentences last menstrual period was 09/01/2019. Past medical history is high blood pressure and she is on metoprolol 100 mg twice a day. Last bowel movement was today no urinary symptoms. I have greeted and performed a rapid initial assessment of this patient. A comprehensive ED assessment and evaluation of the patient, analysis of test results and completion of medical decision making process will be conducted by a n additional ED providers. TRAVEL OUTSIDE OF THE [place] IN LAST 30 DAYS: No - Related Data Allergies/Adverse Reactions: No Known Allergies Allergy (Verified 09/27/19 15:13) Home Medications: metoprolol Past Medical History - Social History Chew tobacco use (# tins/day): No Frequency of alcohol use: None Drug Abuse: None - Past Medical History Cardiac Medical History: Denies: Hx Coronary Artery Disease, Hx Heart Attack, Hx Hypertension Pulmonary Medical History: Denies: Hx Asthma, Hx Bronchitis, Hx COPD, Hx Pneumonia Neurological Medical History: Denies: Hx Cerebrovascular Accident, Hx Migraine, Hx Seizures Endocrine Medical History: Denies: Hx Diabetes Mellitus Type 1 Renal/ Medical History: Denies: Hx Peritoneal Dialysis Musculoskeltal Medical History: Denies Hx Arthritis - Immunizations Immunizations up to date: Yes Hx Diphtheria, Pertussis, Tetanus Vaccination: Yes Physical Exam - Vital signs Vitals: Temp Pulse Resp BP Pulse Ox 98.6 F 85 20 197/106 H 99 09/27/19 15:12 09/27/19 15:12 09/27/19 15:12 09/27/19 15:12 09/27/19 15:12 Course - Vital Signs Vital signs: Temp Pulse Resp BP Pulse Ox 98.6 F 85 20 197/106 H 99 09/27/19 15:12 09/27/19 15:12 09/27/19 15:12 09/27/19 15:12 09/27/19 15:12 Doctor's Discharge - Discharge Referrals: LUZ BROWN MD [Primary Care Provider] - Follow up as needed
--- NOTE | 2019-09-27 15:55 | ER Document Report ---
ED General - General Chief Complaint: Abdominal Pain Stated Complaint: ABDOMINAL PAIN Time Seen by Provider: 09/27/19 15:19 Primary Care Provider: LUZ BROWN MD [EMERITUS] - Follow up as needed Mode of Arrival: Ambulatory TRAVEL OUTSIDE OF THE [place] IN LAST 30 DAYS: No - HPI Patient complains to provider of: LUQ Pain Notes: Well-appearing 29-year-old female presents with about 1 week history of burning left upper quadrant abdominal pain 6/10 without radiation nothing makes it better or worse. Denies any nausea vomiting diarrhea or other any acute symptoms. No trauma to her abdomen. Denies fever chills. Patient does have a family doctor but she thought it would go away. Patient took a home test that was negative yesterday. She just not sure why she has burning sensation in her left upper quadrant. - Related Data Allergies/Adverse Reactions: No Known Allergies Allergy (Verified 09/27/19 15:13) Home Medications: metoprolol Past Medical History - General Information source: Patient - Social History Smoking Status: Never Smoker Chew tobacco use (# tins/day): No Frequency of alcohol use: None Drug Abuse: None Family History: Reviewed & Not Pertinent Patient has suicidal ideation: No Patient has homicidal ideation: No - Past Medical History Cardiac Medical History: Denies: Hx Coronary Artery Disease, Hx Heart Attack, Hx Hypertension Pulmonary Medical History: Denies: Hx Asthma, Hx Bronchitis, Hx COPD, Hx Pneumonia Neurological Medical History: Denies: Hx Cerebrovascular Accident, Hx Migraine, Hx Seizures Endocrine Medical History: Denies: Hx Diabetes Mellitus Type 1 Renal/ Medical History: Denies: Hx Peritoneal Dialysis Musculoskeletal Medical History: Denies Hx Arthritis - Immunizations Immunizations up to date: Yes Hx Diphtheria, Pertussis, Tetanus Vaccination: Yes Review of Systems - Review of Systems Notes: REVIEW OF SYSTEMS: CONSTITUTIONAL: -fevers, -chills EENT: -eye pain, -difficulty swallowing, -nasal congestion CARDIOVASCULAR: -chest pain, -syncope. RESPIRATORY: -cough, -SOB GASTROINTESTINAL: positive abdominal pain, -nausea, -vomiting, -diarrhea GENITOURINARY: -dysuria, -hematuria MUSCULOSKELETAL: -back pain, -neck pain SKIN: -rash or skin lesions. HEMATOLOGIC: -easy bruising or bleeding. LYMPHATIC: -swollen, enlarged glands. NEUROLOGICAL: -altered mental status or loss of consciousness, -headache, - neurologic symptoms PSYCHIATRIC: -anxiety, -depression. ALL OTHER SYSTEMS REVIEWED AND NEGATIVE. Physical Exam - Vital signs Vitals: Temp Pulse Resp BP Pulse Ox 98.6 F 85 20 197/106 H 99 09/27/19 15:12 09/27/19 15:12 09/27/19 15:12 09/27/19 15:12 09/27/19 15:12 - Notes Notes: PHYSICAL EXAMINATION: GENERAL: Well-appearing, well-nourished and in no acute distress. HEAD: Atraumatic, normocephalic. EYES: Pupils equal round and reactive to light, extraocular movements intact, sclera anicteric, conjunctiva are normal. ENT: nares patent, oropharynx clear without exudates. Moist mucous membranes. NECK: Normal range of motion, supple without lymphadenopathy LUNGS: Breath sounds clear to auscultation bilaterally and equal. No wheezes rales or rhonchi. HEART: Regular rate and rhythm without murmurs ABDOMEN: Soft, nontender, normoactive bowel sounds. No guarding, no rebound. No masses appreciated. EXTREMITIES: Normal range of motion, no pitting or edema. No cyanosis. NEUROLOGICAL: Cranial nerves grossly intact. Normal speech, normal gait. Normal sensory and motor exams. PSYCH: Normal mood, normal affect. SKIN: Warm, Dry, normal turgor, no rashes or lesions noted. Course - Re-evaluation Re-evalutation: 09/27/19 16:47 Well-appearing female no acute distress presents with benign left upper quadrant abdominal pain. Patient's extensive lab work-up unremarkable no leukocytosis or other gross abnormality. Patient given dose oral Maalox in the emergency part feeling markedly improved. Presumed gastritis. Will initiate famotidine therapy. Follow-up PCP return if any worsens or changes. - Vital Signs Vital signs: Temp Pulse Resp BP Pulse Ox 98.6 F 85 20 185/116 H 99 09/27/19 15:12 09/27/19 15:12 09/27/19 15:12 09/27/19 15:29 09/27/19 15:12 - Laboratory Result Diagrams: 09/27/19 15:40 09/27/19 15:40 Laboratory results interpreted by me: 09/27/19 15:40 RDW 14.1 H Discharge - Discharge Clinical Impression: Gastritis Qualifiers: Gastritis type: unspecified gastritis Chronicity: acute Gastritis bleeding: without bleeding Qualified Code(s): K29.00 - Acute gastritis without bleeding Condition: Stable Disposition: HOME, SELF-CARE Instructions: Abdominal Pain ([facility]) Prescriptions: Famotidine [Acid Controller] 20 mg PO DAILY #30 tablet Referrals: LUZ BROWN MD [EMERITUS] - Follow up as needed
[2019-09-27] MEDS ORDERED: MAG HYDROX/AL HYDROX/SIMETH SUSP 30 ML UDCUP PO ONE (16:02)
[2019-09-27 16:05] LABS: ABSOLUTE EOSINOPHILS # (AUTO) 0.1 10^3/uL (0.0-0.6); ABSOLUTE LYMPHOCYTES (AUTO) 2.1 10^3/uL (0.5-4.7); ABSOLUTE MONOCYTES (AUTO) 0.5 10^3/uL (0.1-1.4); ABSOLUTE NEUT (AUTO) 4.1 10^3/uL (1.7-8.2); BASOPHILS % (AUTO) 0.5 % (0-2); EOSINOPHILS % (AUTO) 2.2 % (0-6); HEMATOCRIT 37.4 % (36.0-47.0); HEMOGLOBIN 12.4 g/dL (12.0-15.5); LYMPHOCYTES % (AUTO) 29.9 % (13-45); MEAN CORPUSCULAR HEMOGLOBIN 27.8 pg (27.0-33.4); MEAN CORPUSCULAR HGB CONC 33.1 g/dL (32.0-36.0); MEAN CORPUSCULAR VOLUME 84 fl (80-97); MONOCYTES % (AUTO) 7.4 % (3-13); PLATELET COUNT 389 10^3/uL (150-450); RED BLOOD COUNT 4.46 10^6/uL (3.72-5.28); RED CELL DISTRIBUTION WIDTH 14.1 % (11.5-14.0); TOTAL CELLS COUNTED % (AUTO) 100 %; WHITE BLOOD COUNT 6.9 10^3/uL (4.0-10.5)
[2019-09-27 16:27] LABS: ALBUMIN 4.2 g/dL (3.5-5.0); ALKALINE PHOSPHATASE 71 U/L (38-126); ANION GAP 8 (5-19); ASPARTATE AMINO TRANSFERASE 15 U/L (14-36); BILIRUBIN,TOTAL 0.3 mg/dL (0.2-1.3); BLOOD UREA NITROGEN 15 mg/dL (7-20); CALCIUM 9.5 mg/dL (8.4-10.2); CARBON DIOXIDE 26 mmol/L (22-30); CHLORIDE 105 mmol/L (98-107); GLUCOSE 82 mg/dL (75-110); POTASSIUM 4.1 mmol/L (3.6-5.0)
[2019-09-27 17:00] VITALS: BP 178/121
== END 2019-09-27 17:02 | disposition home or self-care (01) ==
LOC: ER 15:10
DX: K29.00 Acute gastritis without bleeding (principal); R10.9 Unspecified abdominal pain; R10.12 Left upper quadrant pain
CPT/HCPCS: 36415; 80053; 84703; 85025; 99284

== ENCOUNTER 2019-10-18 12:40 | Emergency (ER) | payer MEDICAID ==
--- NOTE | 2019-10-18 12:52 | ER Document Report ---
ED GI/ - General Stated Complaint: FLANK PAIN Time Seen by Provider: 10/18/19 12:41 Primary Care Provider: ERAN SKINNER MD [Primary Care Provider] - Follow up as needed Mode of Arrival: Wheelchair Information source: Patient Notes: Patient presents complaining of right-sided abdominal pain that started yesterday. Patient denies any fever nausea vomiting or diarrhea. Patient does complain of some mild dysuria. Patient states she was told she had gallbladder issues and suspects this today. TRAVEL OUTSIDE OF THE [place] IN LAST 30 DAYS: No - HPI Patient complains to provider of: Abdominal pain. No: Vaginal discharge, Vomiting Onset: Yesterday Timing/Duration: Persistent Pain Level: 4 Location: Other - Right middle abdominal tenderness Vaginal bleeding (Compared to normal period): None Associated symptoms: Dysuria. denies: Fever, Loss of appetite, Nausea, Urinary hesitancy, Urinary frequency, Urinary retention, Urinary urgency, Vaginal discharge, Vomiting Exacerbated by: Denies Relieved by: Denies Similar symptoms previously: Yes Recently seen / treated by doctor: No - Related Data Allergies/Adverse Reactions: No Known Allergies Allergy (Verified 09/27/19 15:13) Past Medical History - General Information source: Patient - Social History Smoking Status: Never Smoker Chew tobacco use (# tins/day): No Frequency of alcohol use: None Drug Abuse: None Occupation: [employer] Family History: Reviewed & Not Pertinent Patient has suicidal ideation: No Patient has homicidal ideation: No - Past Medical History Cardiac Medical History: Reports: Hx Hypertension Denies: Hx Coronary Artery Disease, Hx Heart Attack Pulmonary Medical History: Denies: Hx Asthma, Hx Bronchitis, Hx COPD, Hx Pneumonia Neurological Medical History: Denies: Hx Cerebrovascular Accident, Hx Migraine, Hx Seizures Endocrine Medical History: Denies: Hx Diabetes Mellitus Type 1 Renal/ Medical History: Denies: Hx Peritoneal Dialysis Musculoskeletal Medical History: Denies Hx Arthritis Surgical Hx: Negative - Immunizations Immunizations up to date: Yes Hx Diphtheria, Pertussis, Tetanus Vaccination: Yes Review of Systems - Review of Systems Constitutional: No symptoms reported. denies: Fever, Recent illness EENT: No symptoms reported Cardiovascular: No symptoms reported. denies: Chest pain Respiratory: No symptoms reported. denies: Cough, Short of breath Gastrointestinal: Abdominal pain. denies: Diarrhea, Nausea, Vomiting Genitourinary: Dysuria. denies: Flank pain Female Genitourinary: No symptoms reported. denies: Vaginal discharge, Vaginal bleeding Musculoskeletal: No symptoms reported. denies: Back pain Skin: No symptoms reported Hematologic/Lymphatic: No symptoms reported Neurological/Psychological: No symptoms reported Physical Exam - Vital signs Vitals: Temp Pulse Resp BP Pulse Ox 97.5 F 81 17 150/104 H 95 10/18/19 12:44 10/18/19 12:44 10/18/19 12:44 10/18/19 12:44 10/18/19 12:44 - General General appearance: Appears well, Alert In distress: None - HEENT Head: Normocephalic, Atraumatic Eyes: Normal Conjunctiva: Normal Nasal: Normal Mouth/Lips: Normal Mucous membranes: Normal Neck: Normal, Supple - Respiratory Respiratory status: No respiratory distress Chest status: Nontender Breath sounds: Normal. No: Rales, Rhonchi, Stridor, Wheezing Chest palpation: Normal - Cardiovascular Rhythm: Regular Heart sounds: S1 appreciated, S2 appreciated - Abdominal Inspection: Morbidly Obese Distension: No distension - Back Back: Normal, Nontender. No: CVA tenderness - Extremities General upper extremity: Normal inspection, Normal ROM General lower extremity: Normal inspection, Normal ROM - Neurological Neuro grossly intact: Yes Cognition: Normal [place] Coma Scale Eye Opening: Spontaneous [place] Coma Scale Verbal: Oriented [place] Coma Scale Motor: Obeys Commands [place] Coma Scale Total: 15 - Psychological Associated symptoms: Normal affect, Normal mood - Skin Skin Temperature: Warm Skin Moisture: Dry Skin Color: Normal Course - Re-evaluation Re-evalutation: 10/18/19 15:05 Patient presents with dysuria symptoms and right-sided abdominal discomfort that started yesterday. Patient does have a UTI. Patient without any fever, leukocytosis or abnormal liver function tests. Patient was concerned that she may be having a problem with her gallbladder although does not have pain to the right upper quadrant. Pt without any McBurney point tenderness and negative Bartlett sign. Patient presents with abdominal pain without signs of peritonitis or other life-threatening or serious etiology. Patient appears stable for discharge and has been instructed to return immediately if the symptoms worsen i n any way. - Vital Signs Vital signs: Temp Pulse Resp BP Pulse Ox 97.9 F 81 27 H 159/81 H 100 10/18/19 15:00 10/18/19 12:44 10/18/19 15:00 10/18/19 14:09 10/18/19 15:00 - Laboratory Result Diagrams: 10/18/19 14:00 10/18/19 14:00 Laboratory results interpreted by me: 10/18/19 10/18/19 10/18/19 14:00 14:00 14:05 Hct 35.7 L RDW 14.2 H Sodium 136.9 L Urine Protein 100 H Urine Blood SMALL H Ur Leukocyte Esterase SMALL H Labs- Entire Visit 10/18/19 10/18/19 10/18/19 14:00 14:00 14:00 WBC 7.5 RBC 4.24 Hgb 12.0 Hct 35.7 L MCV 84 MCH 28.4 MCHC 33.7 RDW 14.2 H Plt Count 321 Lymph % (Auto) 24.3 [place] % (Auto) 6.5 Eos % (Auto) 0.9 Baso % (Auto) 0.6 Absolute Neuts (auto) 5.1 Absolute Lymphs (auto) 1.8 Absolute Monos (auto) 0.5 Absolute Eos (auto) 0.1 Absolute Basos (auto) 0.0 Seg Neutrophils % 67.7 Sodium 136.9 L Potassium 3.8 Chloride 103 Carbon Dioxide 24 Anion Gap 10 BUN 15 Creatinine 0.69 Est GFR ( Amer) > 60 Est GFR (MDRD) Non-Af > 60 Glucose 86 Calcium 9.8 Total Bilirubin 0.6 Direct Bilirubin 0.0 Neonat Total Bilirubin Not Reportable Neonat Direct Bilirubin Not Reportable Neonat Indirect Bili Not Reportable AST 16 ALT 14 Alkaline Phosphatase 78 Total Protein 8.0 Albumin 4.2 Lipase 82.4 Serum HCG, Qual NEGATIVE Urine Color Urine Appearance Urine pH Ur Specific [place] Urine Protein Urine Glucose (UA) Urine Ketones Urine Blood Urine Nitrite Urine Bilirubin Urine Urobilinogen Ur Leukocyte Esterase Urine WBC (Auto) Urine RBC (Auto) Urine Bacteria (Auto) Squamous Epi Cells Auto Urine Mucus (Auto) Urine Ascorbic Acid 10/18/19 14:05 WBC RBC Hgb Hct MCV MCH MCHC RDW Plt Count Lymph % (Auto) [place] % (Auto) Eos % (Auto) Baso % (Auto) Absolute Neuts (auto) Absolute Lymphs (auto) Absolute Monos (auto) Absolute Eos (auto) Absolute Basos (auto) Seg Neutrophils % Sodium Potassium Chloride Carbon Dioxide Anion Gap BUN Creatinine Est GFR ( Amer) Est GFR (MDRD) Non-Af Glucose Calcium Total Bilirubin Direct Bilirubin Neonat Total Bilirubin Neonat Direct Bilirubin Neonat Indirect Bili AST ALT Alkaline Phosphatase Total Protein Albumin Lipase Serum HCG, Qual Urine Color YELLOW Urine Appearance SLIGHTLY-CLOUDY Urine pH 6.0 Ur Specific [place] 1.021 Urine Protein 100 H Urine Glucose (UA) NEGATIVE Urine Ketones NEGATIVE Urine Blood SMALL H Urine Nitrite NEGATIVE Urine Bilirubin NEGATIVE Urine Urobilinogen NEGATIVE Ur Leukocyte Esterase SMALL H Urine WBC (Auto) 126 Urine RBC (Auto) 14 Urine Bacteria (Auto) 1+ Squamous Epi Cells Auto 2 Urine Mucus (Auto) MANY Urine Ascorbic Acid NEGATIVE Discharge - Discharge Clinical Impression: UTI (urinary tract infection) Qualifiers: Urinary tract infection type: site unspecified Hematuria presence: with hematuria Qualified Code(s): N39.0 - Urinary tract infection, site not specified Abdominal pain Qualifiers: Abdominal location: unspecified location Qualified Code(s): R10.9 - Unspecified abdominal pain Condition: Stable Disposition: HOME, SELF-CARE Instructions: Abdominal Pain ([facility]), Cephalexin ([facility]), Urinary Anesthetic Agent ([facility]), Urinary Tract Infection ([facility]) Additional Instructions: Return immediately for any new or worsening symptoms Followup with your primary care provider, call tomorrow to make a followup appointment Urine culture is pending, we will call if you need any different treatment Prescriptions: Cephalexin Monohydrate [Keflex 500 mg Capsule] 500 mg PO BID 7 Days #14 capsule Phenazopyridine HCl [Pyridium 200 mg Tablet] 200 mg PO TID #15 tablet Forms: Return to Work Referrals: ERAN SKINNER MD [Primary Care Provider] - Follow up as needed
[2019-10-18 14:16] VITALS: BP 159/81
[2019-10-18 14:22] LABS: ABSOLUTE EOSINOPHILS # (AUTO) 0.1 10^3/uL (0.0-0.6); ABSOLUTE LYMPHOCYTES (AUTO) 1.8 10^3/uL (0.5-4.7); ABSOLUTE MONOCYTES (AUTO) 0.5 10^3/uL (0.1-1.4); ABSOLUTE NEUT (AUTO) 5.1 10^3/uL (1.7-8.2); BASOPHILS % (AUTO) 0.6 % (0-2); EOSINOPHILS % (AUTO) 0.9 % (0-6); HEMATOCRIT 35.7 % (36.0-47.0); LYMPHOCYTES % (AUTO) 24.3 % (13-45); MEAN CORPUSCULAR HEMOGLOBIN 28.4 pg (27.0-33.4); MEAN CORPUSCULAR HGB CONC 33.7 g/dL (32.0-36.0); MEAN CORPUSCULAR VOLUME 84 fl (80-97); MONOCYTES % (AUTO) 6.5 % (3-13); PLATELET COUNT 321 10^3/uL (150-450); RED BLOOD COUNT 4.24 10^6/uL (3.72-5.28); RED CELL DISTRIBUTION WIDTH 14.2 % (11.5-14.0); SEGMENTED NEUTROPHILS % (AUTO) 67.7 % (42-78); TOTAL CELLS COUNTED % (AUTO) 100 %; WHITE BLOOD COUNT 7.5 10^3/uL (4.0-10.5)
[2019-10-18 14:29] LABS: APPEARANCE,URINE SLIGHTLY-CLOUDY; BILIRUBIN,URINE NEGATIVE (NEGATIVE); COLOR,URINE YELLOW; GLUCOSE, URINE NEGATIVE (NEGATIVE); KETONES,URINE NEGATIVE (NEGATIVE); LEUKOCYTE ESTERASE,URINE SMALL (NEGATIVE); NITRITE,URINE NEGATIVE (NEGATIVE); PROTEIN,URINE 100 mg/dL (NEGATIVE); URINE SPECIFIC GRAVITY 1.021; UROBILINOGEN,URINE NEGATIVE mg/dL (<2.0)
[2019-10-18 14:40] LABS: ALBUMIN 4.2 g/dL (3.5-5.0); ALKALINE PHOSPHATASE 78 U/L (38-126); ANION GAP 10 (5-19); ASPARTATE AMINO TRANSFERASE 16 U/L (14-36); BILIRUBIN,TOTAL 0.6 mg/dL (0.2-1.3); BLOOD UREA NITROGEN 15 mg/dL (7-20); CALCIUM 9.8 mg/dL (8.4-10.2); CARBON DIOXIDE 24 mmol/L (22-30); CHLORIDE 103 mmol/L (98-107); GLUCOSE 86 mg/dL (75-110); POTASSIUM 3.8 mmol/L (3.6-5.0)
[2019-10-18] MEDS ORDERED: CEFTRIAXONE 1 GM/D5W RTU 1 GM/50 ML RTUPB IV ONE (14:45)
[2019-10-18] MEDS ORDERED: CEFTRIAXONE INJ 1000 MG VIAL IM ONE (14:57)
[2019-10-18] MEDS ORDERED: LIDOCAINE 1% INJ (10 MG/ML) 10 ML MDV INJ ONE (14:58)
[2019-10-18 16:30] LABS: CHLAM PCR NOT DETECTED (NOT DETECT)
== END 2019-10-18 16:10 | disposition home or self-care (01) ==
LOC: ER 12:40
DX: N39.0 Urinary tract infection, site not specified (principal); R10.9 Unspecified abdominal pain; I10 Essential (primary) hypertension; E66.01 Morbid (severe) obesity due to excess calories
CPT/HCPCS: 99284; 96372; 36415; 87086; 83690; 84703; 85025; 87088; 80053; 81001; 87186; 87491; 87591; J0696; J3490

== ENCOUNTER → 2019-11-19 | Outpatient (CLI) | payer MEDICAID ==
[2019-11-19 10:32] LABS: ANION GAP 9 (5-19); BLOOD UREA NITROGEN 14 mg/dL (7-20); CALCIUM 8.8 mg/dL (8.4-10.2); CARBON DIOXIDE 24 mmol/L (22-30); CHLORIDE 102 mmol/L (98-107); GLUCOSE 114 mg/dL (75-110); POTASSIUM 3.9 mmol/L (3.6-5.0)
== END ==
LOC: OD 09:35
PROVIDERS: ATTEND Physician Assistant
DX: I10 Essential (primary) hypertension (principal); Z79.899 Other long term (current) drug therapy
CPT/HCPCS: 36415; 80048

== ENCOUNTER 2020-01-09 14:07 | Emergency (ER) | payer MEDICAID ==
[2020-01-09] MEDS ORDERED: METOPROLOL TARTRATE 100 MG TABLET PO ONE (15:00)
[2020-01-09] MEDS ORDERED: METOCLOPRAMIDE HCL INJ/PF 10 MG/2 ML SDV IV ONE (15:00)
[2020-01-09] MEDS ORDERED: RINGERS SOLUTION,LACTATED 1,000 ML IV ONE (15:00)
--- NOTE | 2020-01-09 15:02 | ER Document Report ---
ED Medical Screen (RME) - General Chief Complaint: Dizziness Stated Complaint: DIZZINESS Time Seen by Provider: 01/09/20 14:56 Primary Care Provider: PARI GARZA PA-C [Primary Care Provider] - Follow up as needed Mode of Arrival: Ambulatory Information source: Patient Notes: HPI; 29-year-old female past medical history significant for hypertension presents to the emergency room complaining of a headache for the past 2 days. 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 States she woke up with a headache today. Try taking Tylenol without relief. Complains of nausea but no vomiting. No history of migraines. PE: Alert and oriented x3. Moderate distress noted. PERRLA, EOMI, lungs clear to auscultation without rales, rhonchi, wheezes. Heart: Regular rate rhythm without murmurs, rubs, gallops. I have greeted and performed a rapid initial assessment of this patient. A comprehensive ED assessment and evaluation of the patient, analysis of test results and completion of the medical decision making process will be conducted by additional ED providers. I have specifically instructed the patient or family members with the patient to immediately return to any nursing staff should anything change in the patient's condition or with their chief complaint. TRAVEL OUTSIDE OF THE [place] IN LAST 30 DAYS: No - Related Data Allergies/Adverse Reactions: No Known Allergies Allergy (Verified 01/09/20 14:56) Home Medications: metoprolol. 2 fluid pills Past Medical History - Social History Chew tobacco use (# tins/day): No Frequency of alcohol use: None Drug Abuse: None - Past Medical History Cardiac Medical History: Reports: Hx Hypertension Denies: Hx Coronary Artery Disease, Hx Heart Attack Pulmonary Medical History: Denies: Hx Asthma, Hx Bronchitis, Hx COPD, Hx Pneumonia Neurological Medical History: Denies: Hx Cerebrovascular Accident, Hx Migraine, Hx Seizures Endocrine Medical History: Denies: Hx Diabetes Mellitus Type 1 Renal/ Medical History: Denies: Hx Peritoneal Dialysis Musculoskeltal Medical History: Denies Hx Arthritis - Immunizations Immunizations up to date: Yes Hx Diphtheria, Pertussis, Tetanus Vaccination: Yes Physical Exam - Vital signs Vitals: Temp Pulse Resp BP Pulse Ox 97.7 F 78 16 162/110 H 95 01/09/20 14:10 01/09/20 14:10 01/09/20 14:10 01/09/20 14:10 01/09/20 14:10 Course - Vital Signs Vital signs: Temp Pulse Resp BP Pulse Ox 97.7 F 78 16 162/110 H 95 01/09/20 14:56 01/09/20 14:10 01/09/20 14:10 01/09/20 14:10 01/09/20 14:10 Doctor's Discharge - Discharge Referrals: PARI GARZA PAWesC [Primary Care Provider] - Follow up as needed
--- NOTE | 2020-01-09 16:33 | ER Document Report ---
HPI - HPI Patient complains to provider of: Headache. hypternstion Time Seen by Provider: 01/09/20 14:56 Pain Level: 4 Context: See RME note Associated Symptoms: None Exacerbated by: Movement Relieved by: Remaining still Similar symptoms previously: No Recently seen / treated by doctor: No - ROS Systems Reviewed and Negative: Yes All other systems reviewed and negative - NEURO Neurology: REPORTS: Headache. DENIES: Weakness - RESPIRATORY Respiratory: DENIES: Trouble Breathing - REPRODUCTIVE Reproductive: DENIES: : - DERM Skin Color: Normal Skin Problems: None Past Medical History - General Information source: Patient - Social History Smoking Status: Never Smoker Chew tobacco use (# tins/day): No Frequency of alcohol use: None Drug Abuse: None Family History: Reviewed & Not Pertinent Patient has homicidal ideation: No - Past Medical History Cardiac Medical History: Reports: Hx Hypertension Denies: Hx Coronary Artery Disease, Hx Heart Attack Pulmonary Medical History: Denies: Hx Asthma, Hx Bronchitis, Hx COPD, Hx Pneumonia Neurological Medical History: Denies: Hx Cerebrovascular Accident, Hx Migraine, Hx Seizures Endocrine Medical History: Denies: Hx Diabetes Mellitus Type 1 Renal/ Medical History: Denies: Hx Peritoneal Dialysis Musculoskeletal Medical History: Denies Hx Arthritis - Immunizations Immunizations up to date: Yes Hx Diphtheria, Pertussis, Tetanus Vaccination: Yes Vertical Provider Document - CONSTITUTIONAL Agree With Documented VS: Yes Exam Limitations: No Limitations General Appearance: Mild Distress - INFECTION CONTROL TRAVEL OUTSIDE OF THE [place] IN LAST 30 DAYS: No - HEENT HEENT: Atraumatic, Normocephalic, PERRLA - NECK Neck: Normal Inspection, Supple - RESPIRATORY Respiratory: Breath Sounds Normal, No Respiratory Distress, Chest Non-Tender. negative: Rales, Rhonchi, Wheezing - CARDIOVASCULAR Cardiovascular: Regular Rate, Regular Rhythm, No Murmur - BACK Back: Normal Inspection - MUSCULOSKELETAL/EXTREMETIES Musculoskeletal/Extremeties: FROM - NEURO Level of Consciousness: Awake, Alert, Appropriate Motor/Sensory: No Motor Deficit, No Sensory Deficit - DERM Integumentary: Warm, Dry, No Rash Course - Re-evaluation Re-evalutation: 01/09/20 16:35 Patient has requested to leave AGAINST MEDICAL ADVICE. The patient has chosen to leave the facility against medical advice. The relevant issues have been reviewed and discussed with the patient and family at the bedside. At the time of this assessment there is no indication for involuntary commitment. The patient is alert, oriented, and able to express clearly their reasoning for not wanting to remain in the emergency department for further treatment. The patient is not clinically psychotic, intoxicated, and denies and suicidal ideation. Differential or suspected diagnoses based on medical screening exam: Headache unknown etiology The patient is aware of the concerning diagnoses and acknowledges understanding of the reasons for the following recommendations: Loss of life, permanent disability, chronic pain, worsening of condition, cardiac dysfunction, respirat ory dysfunction loss of current lifestyle The following recommendations/services were offered and refused: Further evaluation and treatment The following risks were explained: , permanent disability, loss of function Clinical impression: Patient is competent to make decisions regarding the medical treatment is being offered. 01/09/20 18:44 - Vital Signs Vital signs: Temp Pulse Resp BP Pulse Ox 97.7 F 78 16 162/110 H 95 01/09/20 14:56 01/09/20 14:10 01/09/20 14:10 01/09/20 14:10 01/09/20 14:10 Discharge - Discharge Clinical Impression: Left against medical advice Headache Qualifiers: Headache type: unspecified Headache chronicity pattern: acute headache Intractability: not intractable Qualified Code(s): R51 - Headache Hypertension Qualifiers: Hypertension type: essential hypertension Qualified Code(s): I10 - Essential (primary) hypertension Condition: Stable Disposition: AGAINST MEDICAL ADVICE Instructions: Headache ([facility]), High Blood Pressure, Requiring Treatment ([facility]) Additional Instructions: You have chosen to leave AGAINST MEDICAL ADVICE. You are counseled against the risks of leaving AGAINST MEDICAL ADVICE including but not limited to , loss of current lifestyle, worsening pain, cardiac dysfunction, respiratory dysfunction. Neurological dysfunction Please call your primary care physician tomorrow for follow-up appointment. Turn for any new or worsening symptoms. Forms: Elevated Blood Pressure Referrals: PARI GARZA PA-C [PHYSICIAN PROPERTY AND CASUALTY INSURANCE AGENT] - Follow up tomorrow (Call your primary care physician tomorrow for follow-up appointment.)
[2020-01-09 16:35] VITALS: BP 155/105
== END 2020-01-09 16:35 | disposition left against medical advice (07) ==
LOC: ER 14:07
DX: Z53.20 Procedure and treatment not carried out because of patient's decision for unspecified reasons (principal); R51 Headache; I10 Essential (primary) hypertension
CPT/HCPCS: 99283; J3490

== ENCOUNTER 2020-02-10 11:11 | Emergency (ER) | payer MEDICAID ==
[2020-02-10 13:36] LABS: ABSOLUTE EOSINOPHILS # (AUTO) 0.1 10^3/uL (0.0-0.6); ABSOLUTE LYMPHOCYTES (AUTO) 1.5 10^3/uL (0.5-4.7); ABSOLUTE MONOCYTES (AUTO) 0.5 10^3/uL (0.1-1.4); ABSOLUTE NEUT (AUTO) 4.6 10^3/uL (1.7-8.2); BASOPHILS % (AUTO) 0.4 % (0-2); EOSINOPHILS % (AUTO) 1.4 % (0-6); HEMATOCRIT 31.4 % (36.0-47.0); HEMOGLOBIN 10.5 g/dL (12.0-15.5); MEAN CORPUSCULAR HEMOGLOBIN 28.8 pg (27.0-33.4); MEAN CORPUSCULAR HGB CONC 33.4 g/dL (32.0-36.0); MEAN CORPUSCULAR VOLUME 86 fl (80-97); MONOCYTES % (AUTO) 7.3 % (3-13); PLATELET COUNT 327 10^3/uL (150-450); RED BLOOD COUNT 3.65 10^6/uL (3.72-5.28); RED CELL DISTRIBUTION WIDTH 15.3 % (11.5-14.0); SEGMENTED NEUTROPHILS % (AUTO) 68.9 % (42-78); TOTAL CELLS COUNTED % (AUTO) 100 %; WHITE BLOOD COUNT 6.7 10^3/uL (4.0-10.5)
--- NOTE | 2020-02-10 13:38 | ER Document Report ---
ED Respiratory Problem - General Chief Complaint: Shortness Of Breath Stated Complaint: SHORTNESS OF BREATH/BACK PAIN Time Seen by Provider: 02/10/20 12:58 Mode of Arrival: Ambulatory Information source: Patient Notes: Patient presents complaining of shortness of breath for the past 4 days. P atient states shortness of breath is worse with exertion. Patient denies any cough or cold symptoms. Patient does complain of right-sided chest pain and right lower thoracic back pain. Patient states the pain does radiate to bilateral shoulders. Patient has had some nausea. Patient is currently 6 weeks G4, P3. TRAVEL OUTSIDE OF THE [place] IN LAST 30 DAYS: No - HPI Patient complains to provider of: Short of breath. No: Cough Onset: Other - 4 days Quality of pain: Achy, Sharp Pain Level: 5 Context: denies: Hx asthma, Recent immobilization, Recent surgery, Smoker Chest pain/discomfort: Constant, Right Associated symptoms: Chest pain/discomfort, Short of breath. 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 Lives with: Family Family History: Reviewed & Not Pertinent - Past Medical History Cardiac Medical History: Reports: Hx Hypertension Denies: Hx Coronary Artery Disease, Hx DVT, Hx Pulmonary Embolism Pulmonary Medical History: Denies: Hx Asthma, Hx Bronchitis, Hx COPD, Hx Pneumonia Endocrine Medical History: Denies: Hx Diabetes Mellitus Type 1 Renal/ Medical History: Denies: Hx Peritoneal Dialysis Musculoskeletal Medical History: Denies Hx Arthritis Surgical Hx: Negative - Immunizations Immunizations up to date: Yes Hx Diphtheria, Pertussis, Tetanus Vaccination: Yes Review of Systems - Review of Systems Constitutional: No symptoms reported. denies: Fever, Recent illness EENT: No symptoms reported Cardiovascular: Chest pain. denies: Syncope, Lightheaded Respiratory: Short of breath. denies: Cough Gastrointestinal: Nausea. denies: Abdominal pain, Vomiting Genitourinary: No symptoms reported. denies: Dysuria Female Genitourinary: No symptoms reported Musculoskeletal: Back pain - Posterior right thoracic back pain Skin: No symptoms reported Hematologic/Lymphatic: No symptoms reported Neurological/Psychological: No symptoms reported Physical Exam - Vital signs Vitals: Temp Pulse Resp BP Pulse Ox 98.7 F 78 22 H 154/102 H 100 02/10/20 12:20 02/10/20 12:20 02/10/20 12:20 02/10/20 12:20 02/10/20 12:20 - General General appearance: Appears well, Alert In distress: None - HEENT Head: Normocephalic Eyes: Normal Conjunctiva: Normal Nasal: Normal Mouth/Lips: Normal Mucous membranes: Normal Neck: Normal, Supple. No: Lymphadenopathy - Respiratory Respiratory status: No respiratory distress Chest status: Tender, Pain with deep breathing Breath sounds: Normal. No: Nonproductive cough, Rhonchi, Stridor, Wheezing Chest palpation: Tender - With palpation Patient takes deep inspiration - Cardiovascular Rhythm: Regular. No: Tachycardia Heart sounds: S1 appreciated, S2 appreciated - Abdominal Inspection: Morbidly Obese Distension: No distension Bowel sounds: Normal Tenderness: Nontender Organomegaly: No organomegaly - Back Back: Tender - Right posterior thoracic back pain - Extremities General upper extremity: Normal inspection, Normal strength General lower extremity: Normal inspection, Normal strength - Neurological Neuro grossly intact: Yes Cognition: Normal [place] Coma Scale Eye Opening: Spontaneous [place] Coma Scale Verbal: Oriented [place] Coma Scale Motor: Obeys Commands [place] Coma Scale Total: 15 - Psychological Associated symptoms: Normal affect, Normal mood - Skin Skin Temperature: Warm Skin Moisture: Dry Skin Color: Normal Course - Re-evaluation Re-evalutation: 02/10/20 15:23 Patient with tenderness with deep inspiration only that is reproducible with palpation during deep inspiration. Patient states " I feel like I pulled a muscle". Presentation of chest pain in an otherwise well appearing patient. Low clinical suspicion for ACS given clinical history, exam, EKG without acute ischemic changes, and negative initial troponin. HEART score less than or equal to 3. PE also seems unlikely given clinical history, absence of tachycardia. No elevation in d-dimer. CXR without evidence of pneumothorax or pneumonia. No widened mediastinum. Chest pain in a patient without evidence of cardiac or other serious etiology on workup today. I discussed with patient that, based on their age, risk factors and emergency department testing today, the likelihood that their symptoms are related to a heart attack is very low. The patient demonstrates decision making capacity and has verbalized an understanding of these risks to me. Based on this, the patient has chosen to follow-up as an outpatient. Usual chest pain return precautions reviewed. The patient states understanding and agreement with this plan. Patient does have a follow-up appointment with her primary doctor for recheck tomorrow. Patient encouraged to keep this appointment as planned. - Vital Signs Vital signs: Temp Pulse Resp BP Pulse Ox 98.6 F 78 22 H 154/102 H 100 02/10/20 12:20 02/10/20 12:20 02/10/20 12:20 02/10/20 12:20 02/10/20 13:24 - Laboratory Result Diagrams: 02/10/20 13:20 02/10/20 13:20 Laboratory results interpreted by me: 02/10/20 02/10/20 13:20 13:20 RBC 3.65 L Hgb 10.5 L Hct 31.4 L RDW 15.3 H Sodium 136.1 L Labs- All tests 24 hr 02/10/20 02/10/20 02/10/20 13:20 13:20 13:20 WBC 6.7 RBC 3.65 L Hgb 10.5 L Hct 31.4 L MCV 86 MCH 28.8 MCHC 33.4 RDW 15.3 H Plt Count 327 Lymph % (Auto) 22.0 Todd % (Auto) 7.3 Eos % (Auto) 1.4 Baso % (Auto) 0.4 Absolute Neuts (auto) 4.6 Absolute Lymphs (auto) 1.5 Absolute Monos (auto) 0.5 Absolute Eos (auto) 0.1 Absolute Basos (auto) 0.0 Seg Neutrophils % 68.9 D-Dimer Sodium 136.1 L Potassium 4.1 Chloride 104 Carbon Dioxide 25 Anion Gap 7 BUN 7 Creatinine 0.64 Est GFR ( Amer) > 60 Est GFR (MDRD) Non-Af > 60 Glucose 99 Calcium 9.7 Total Bilirubin 0.5 Direct Bilirubin 0.0 Neonat Total Bilirubin Not Reportable Neonat Direct Bilirubin Not Reportable Neonat Indirect Bili Not Reportable AST 15 ALT 16 Alkaline Phosphatase 58 Troponin I < 0.012 Total Protein 7.1 Albumin 3.8 Lipase 66.8 Urine Color Urine Appearance Urine pH Ur Specific [place] Urine Protein Urine Glucose (UA) Urine Ketones Urine Blood Urine Nitrite Urine Bilirubin Urine Urobilinogen Ur Leukocyte Esterase Urine WBC (Auto) Urine RBC (Auto) Squamous Epi Cells Auto Urine Mucus (Auto) Urine Ascorbic Acid 02/10/20 02/10/20 13:20 13:20 WBC RBC Hgb Hct MCV MCH MCHC RDW Plt Count Lymph % (Auto) Todd % (Auto) Eos % (Auto) Baso % (Auto) Absolute Neuts (auto) Absolute Lymphs (auto) Absolute Monos (auto) Absolute Eos (auto) Absolute Basos (auto) Seg Neutrophils % D-Dimer 0.49 Sodium Potassium Chloride Carbon Dioxide Anion Gap BUN Creatinine Est GFR ( Amer) Est GFR (MDRD) Non-Af Glucose Calcium Total Bilirubin Direct Bilirubin Neonat Total Bilirubin Neonat Direct Bilirubin Neonat Indirect Bili AST ALT Alkaline Phosphatase Troponin I Total Protein Albumin Lipase Urine Color YELLOW Urine Appearance CLEAR Urine pH 7.0 Ur Specific [place] 1.012 Urine Protein NEGATIVE Urine Glucose (UA) NEGATIVE Urine Ketones NEGATIVE Urine Blood NEGATIVE Urine Nitrite NEGATIVE Urine Bilirubin NEGATIVE Urine Urobilinogen NEGATIVE Ur Leukocyte Esterase NEGATIVE Urine WBC (Auto) 0 Urine RBC (Auto) 0 Squamous Epi Cells Auto 1 Urine Mucus (Auto) RARE Urine Ascorbic Acid NEGATIVE - Diagnostic Test Radiology reviewed: Image reviewed, Reports reviewed - EKG Interpretation by Me EKG shows normal: Sinus rhythm Rate: Normal Rhythm: NSR When compared to previous EKG there are: No significant change Additional EKG results interpreted by me: 02/10/20 15:04 Sinus rate 79, QTc 487 Discharge - Discharge Clinical Impression: Chest wall pain Dyspnea Qualifiers: Dyspnea type: dyspnea on exertion Qualified Code(s): R06.00 - Dyspnea, unspecified Condition: Stable Disposition: HOME, SELF-CARE Instructions: Chest Pain of Unclear Cause ([facility]), Chest Wall Pain ([facility]), Warm Packs ([facility]), Ice Packs ([facility]), Acetaminophen Additional Instructions: Return immediately for any new or worsening symptoms Followup with your primary care provider tomorrow as planned Follow-up with your food stylist for recheck Prescriptions: Lidocaine [Lidoderm 5% (700 mg) Transdermal Patch] 1 patch TP DAILY PRN #10 adh..patch PRN Reason: Forms: Return to Work Referrals: LUZ BROWN MD [EMERITUS] - Follow up tomorrow [facility] [Provider Group] - Follow up tomorrow
[2020-02-10 13:41] LABS: APPEARANCE,URINE CLEAR; BILIRUBIN,URINE NEGATIVE (NEGATIVE); COLOR,URINE YELLOW; GLUCOSE, URINE NEGATIVE (NEGATIVE); KETONES,URINE NEGATIVE (NEGATIVE); LEUKOCYTE ESTERASE,URINE NEGATIVE (NEGATIVE); NITRITE,URINE NEGATIVE (NEGATIVE); PROTEIN,URINE NEGATIVE (NEGATIVE); URINE SPECIFIC GRAVITY 1.012; UROBILINOGEN,URINE NEGATIVE mg/dL (<2.0)
[2020-02-10 13:53] LABS: ALBUMIN 3.8 g/dL (3.5-5.0); ALKALINE PHOSPHATASE 58 U/L (38-126); ANION GAP 7 (5-19); ASPARTATE AMINO TRANSFERASE 15 U/L (14-36); BILIRUBIN,TOTAL 0.5 mg/dL (0.2-1.3); BLOOD UREA NITROGEN 7 mg/dL (7-20); CALCIUM 9.7 mg/dL (8.4-10.2); CARBON DIOXIDE 25 mmol/L (22-30); CHLORIDE 104 mmol/L (98-107); GLUCOSE 99 mg/dL (75-110); POTASSIUM 4.1 mmol/L (3.6-5.0); TOTAL PROTEIN 7.1 g/dL (6.3-8.2)
--- NOTE | 2020-02-10 14:38 | RADIOLOGY REPORT (SQ) ---
EXAM DESCRIPTION: CHEST SINGLE VIEW IMAGES COMPLETED DATE/TIME: 02/10/2020 2:08 pm REASON FOR STUDY: cp, back pain, sob COMPARISON: None. NUMBER OF VIEWS: One view. TECHNIQUE: Single frontal radiographic view of the chest acquired. LIMITATIONS: None. FINDINGS: LUNGS AND PLEURA: No opacities, masses or pneumothorax. No pleural effusion. MEDIASTINUM AND HILAR STRUCTURES: No masses. Contour normal. HEART AND VASCULAR STRUCTURES: Heart normal in size. Normal vasculature. BONES: No acute findings. HARDWARE: None in the chest. OTHER: No other significant finding. IMPRESSION: NO SIGNIFICANT RADIOGRAPHIC FINDING IN THE CHEST. TECHNICAL DOCUMENTATION: JOB ID: [id number] 2010 [employer]- All Rights Reserved Reading location - IP/workstation name: [email or web address]
[2020-02-10] MEDS ORDERED: ACETAMINOPHEN 325 MG TABLET PO ONE (15:24)
[2020-02-10] MEDS ORDERED: LIDOCAINE 5% (700 MG) TRANSDERMAL ADH..PATCH TP ONE (15:24)
[2020-02-10 15:53] VITALS: BP 155/70
--- NOTE | 2020-02-11 01:12 | EKG REPORT ---
SEVERITY:- BORDERLINE ECG - SINUS RHYTHM BORDERLINE T ABNORMALITIES, ANTERIOR LEADS BORDERLINE PROLONGED QT INTERVAL : Confirmed by: Myah Maynard 11-Feb-2020 01:11:56
== END 2020-02-10 15:55 | disposition home or self-care (01) ==
LOC: ER 11:11
DX: O26.891 Other specified pregnancy related conditions, first trimester (principal); R07.89 Other chest pain; R06.02 Shortness of breath; R11.0 Nausea; O99.89 Other specified diseases and conditions complicating pregnancy, childbirth and the puerperium; M54.9 Dorsalgia, unspecified; O16.1 Unspecified maternal hypertension, first trimester; Z3A.01 Less than 8 weeks gestation of pregnancy
CPT/HCPCS: 93005; 99285; 36415; 83690; 85025; 80053; 81001; 84484; 85379; 71045; 93010; J3490 ×2

== ENCOUNTER 2020-03-30 11:46 | Emergency (ER) | payer MEDICAID ==
[2020-03-30] MEDS ORDERED: ACETAMINOPHEN 325 MG TABLET PO ONE (12:23)
--- NOTE | 2020-03-30 12:25 | ER Document Report ---
ED General - General Chief Complaint: Vaginal Pain Stated Complaint: VAGINAL PAIN, 12 WKS. Time Seen by Provider: 03/30/20 11:57 Notes: Patient is a 29-year-old female G4, P3 who presents emergency department with a chief complaint of pressure in her vaginal area. Patient states that her pressure started yesterday. Patient has a history of hypertension. Her OBGYN is in [place]. Patient has gone to her first appointment. 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 Patient has a history of hypertension. Patient states that she recently had her medications changed due to her . Patient states that she has not taken her medication this morning. TRAVEL OUTSIDE OF THE [place] IN LAST 30 DAYS: No - Related Data Allergies/Adverse Reactions: No Known Allergies Allergy (Verified 02/10/20 13:45) Past Medical History - General Information source: Patient - Social History Smoking Status: Unknown if Ever Smoked Family History: Reviewed & Not Pertinent - Past Medical History Cardiac Medical History: Reports: Hx Hypertension Denies: Hx Coronary Artery Disease, Hx DVT, Hx Heart Attack, Hx Pulmonary Embolism Pulmonary Medical History: Denies: Hx Asthma, Hx Bronchitis, Hx COPD, Hx Pneumonia Neurological Medical History: Denies: Hx Migraine, Hx Seizures Endocrine Medical History: Denies: Hx Diabetes Mellitus Type 1 Renal/ Medical History: Denies: Hx Peritoneal Dialysis Musculoskeletal Medical History: Denies Hx Arthritis - Immunizations Immunizations up to date: Yes Hx Diphtheria, Pertussis, Tetanus Vaccination: Yes Review of Systems - Review of Systems Notes: REVIEW OF SYSTEMS: CONSTITUTIONAL : Denies recent illness. Denies recent unintentional weight loss. Denies fever, chills, or sweats. EENT: Denies eye, ear, throat, or mouth pain, discharge, or symptoms. Denies nasal or sinus congestion. CARDIOVASCULAR: Denies chest pain. RESPIRATORY: Denies shortness of breath, cough, congestion, difficulty breathing, or wheezing. GASTROINTESTINAL: Denies nausea, vomiting, and diarrhea. Denies constipation. GENITOURINARY: Denies difficulty urinating, burning, blood in urine, urgency or frequency. FEMALE GENITOURINARY: See HPI. MUSCULOSKELETAL: Denies neck and back pain. Denies joint pain or swelling. SKIN: Denies rash, itchiness, or lesions HEMATOLOGIC : Denies easy bruising or bleeding. LYMPHATIC: Denies swollen, painful, enlarged glands. NEUROLOGICAL: Denies no numbness or tingling denies weakness. Denies headache. Denies altered mental status. Denies alteration in speech. PSYCHIATRIC: Denies stress, anxiety, alteration in sleep patterns, or depression. All other systems reviewed and negative. Physical Exam - Vital signs Vitals: Temp Pulse Resp BP Pulse Ox 98.4 F 84 18 177/86 H 99 03/30/20 12:01 03/30/20 12:03/30/20 12:03/30/20 12:03/30/20 12:01 - Notes Notes: PHYSICAL EXAMINATION: GENERAL: Appears well, obese, no acute distress. HEAD: Normocephalic, atraumatic. EYES: PERRL, conjunctiva normal, all extraocular movements intact, sclera nonicteric ENT: Moist mucous membranes. NECK: Supple, no noticeable swelling, redness, rash. Normal range of motion. LUNGS: Equal breath sounds bilaterally and clear to auscultation. No wheezes rales or rhonchi. CARDIOVASCULAR: S1-S2, regular rate, regular rhythm. Radial pulses 2+, normal. ABDOMEN: Normoactive bowel sounds. Soft, nontender, no guarding, no rebound tenderness, and no masses palpated. EXTREMITIES: Normal strength and range of motion, no pitting or edema. No cyanosis. NEUROLOGICAL: Moves all extremities upon command. Strength 5/5 in all extremities. PSYCH: Normal mood, normal affect. SKIN: Warm, dry. No rash, lesions, ulcerations noted. Normal skin turgor. Course - Re-evaluation Re-evalutation: 03/30/20 12:24 Bedside ultrasound done. cardiac activity noted. Heart rate around 140s. movement noted. Sent for urinalysis to check for urinary tract infection. 03/30/20 13:42 Patient's blood pressure is 177/86. She has not taken her medication this morning. Advised the patient to take her medication as prescribed. She will follow-up with her SWEATBAND DRUMMER tomorrow. Urinalysis shows small amount of blood in her urine. Urine culture was sent. Due to the patient having symptoms, will place the patient on Keflex. Follow-up precautions were given. Verbal discharge instructions were given to the patient. They verbalized understanding. They are stable for discharge. - Vital Signs Vital signs: Temp Pulse Resp BP Pulse Ox 97.7 F 78 16 165/101 H 100 03/30/20 14:12 03/30/20 14:12 03/30/20 14:12 03/30/20 14:12 03/30/20 14:12 - Laboratory Laboratory results interpreted by me: 03/30/20 12:45 Urine Protein 30 H Urine Ketones 20 H Urine Blood SMALL H Discharge - Discharge Clinical Impression: Pelvic pressure in Condition: Stable Disposition: HOME, SELF-CARE Additional Instructions: You were seen today in the emergency department for pelvic pressure. Your urine shows that you have a small amount of blood in your urine. You are being started on antibiotics. Take your antibiotics as prescribed. Please follow-up with your SWEATBAND DRUMMER tomorrow in regards to this visit. Prescriptions: Cephalexin [Keflex] 500 mg PO BID #14 capsule Forms: Return to Work
[2020-03-30 13:28] LABS: APPEARANCE,URINE SLIGHTLY-CLOUDY; BILIRUBIN,URINE NEGATIVE (NEGATIVE); COLOR,URINE YELLOW; GLUCOSE, URINE NEGATIVE (NEGATIVE); KETONES,URINE 20 mg/dL (NEGATIVE); LEUKOCYTE ESTERASE,URINE NEGATIVE (NEGATIVE); NITRITE,URINE NEGATIVE (NEGATIVE); PROTEIN,URINE 30 mg/dL (NEGATIVE); URINE SPECIFIC GRAVITY 1.021; UROBILINOGEN,URINE NEGATIVE mg/dL (<2.0)
[2020-03-30 14:14] VITALS: BP 165/101
== END 2020-03-30 14:15 | disposition home or self-care (01) ==
LOC: ER 11:46
DX: O26.891 Other specified pregnancy related conditions, first trimester (principal); R10.2 Pelvic and perineal pain; O16.1 Unspecified maternal hypertension, first trimester; Z3A.12 12 weeks gestation of pregnancy
CPT/HCPCS: 99283; 87086; 87088; 81001; J3490

== ENCOUNTER 2020-07-19 22:44 | Emergency (ER) | payer MEDICAID ==
--- NOTE | 2020-07-19 23:25 | ER Document Report ---
ED Medical Screen (RME) - General Chief Complaint: Chest Pain Stated Complaint: CHEST PAIN Time Seen by Provider: 07/19/20 23:12 Mode of Arrival: Ambulatory Information source: Patient Cannot obtain history due to: Other Notes: Patient is a 30-year-old female comes emergency room with a 2-day onset of chest pain or shortness of breath. Patient also states that she is approximately 28 weeks gestation. She states this started last night and went away and then came back today has been constant all day. She states it is a 6 out of 10. Patient has not taken any aspirin second of the fact that she is . She has a history of hypertension and denies any history of diabetes. She does not smoke drink or do drugs. Patient's DOORKEEPER is in [facility]. She is 4 and para 3 currently. She also states it hurts to take a deep breath. Physical examination shows patient be a well-nourished well-developed morbidly obese but very tall 30-year-old female is in no apparent distress on examination but appears uncomfortable. Cardiac: Patient displays a rate of 85 bpm on monitor with no murmurs auscultated. Lungs: Bilateral breath sounds increased clear to auscultation. Abdomen: Bowel sounds are present all 4 quads. Patient is nontender to light palpation of the abdomen. No suprapubic tenderness noted to palpation I have greeted and performed a rapid initial assessment of this patient. A comprehensive ED assessment and evaluation of the patient, analysis of test results and completion of the medical decision making process will be conducted by additional ED providers. Dictation of this chart was performed using voice recognition software; therefore, there may be some unintended grammatical errors. TRAVEL OUTSIDE OF THE [place] IN LAST 30 DAYS: No - Related Data Allergies/Adverse Reactions: No Known Allergies Allergy (Verified 02/10/20 13:45) Home Medications: prenatals. feSO4. labetalol 300mg ? tid. baby asa Past Medical History - Social History Chew tobacco use (# tins/day): No Frequency of alcohol use: None - Past Medical History Cardiac Medical History: Reports: Hx Hypertension Denies: Hx Coronary Artery Disease, Hx DVT, Hx Heart Attack, Hx Pulmonary Embolism Pulmonary Medical History: Denies: Hx Asthma, Hx Bronchitis, Hx COPD, Hx Pneumonia Neurological Medical History: Denies: Hx Migraine, Hx Seizures Endocrine Medical History: Denies: Hx Diabetes Mellitus Type 1 Renal/ Medical History: Denies: Hx Peritoneal Dialysis Musculoskeltal Medical History: Denies Hx Arthritis - Immunizations Immunizations up to date: Yes Hx Diphtheria, Pertussis, Tetanus Vaccination: Yes Physical Exam - Vital signs Vitals: Temp Pulse Resp BP Pulse Ox 98.1 F 85 18 147/80 H 97 07/19/20 23:05 07/19/20 23:05 07/19/20 23:05 07/19/20 23:05 07/19/20 23:05 Course - Vital Signs Vital signs: Temp Pulse Resp BP Pulse Ox 98.1 F 85 18 147/80 H 97 07/19/20 23:05 07/19/20 23:05 07/19/20 23:05 07/19/20 23:05 07/19/20 23:05
[2020-07-19 23:49] LABS: ABSOLUTE EOSINOPHILS # (AUTO) 0.1 10^3/uL (0.0-0.6); ABSOLUTE LYMPHOCYTES (AUTO) 1.9 10^3/uL (0.5-4.7); ABSOLUTE MONOCYTES (AUTO) 0.5 10^3/uL (0.1-1.4); ABSOLUTE NEUT (AUTO) 4.6 10^3/uL (1.7-8.2); BASOPHILS % (AUTO) 0.3 % (0-2); EOSINOPHILS % (AUTO) 1.7 % (0-6); HEMATOCRIT 29.7 % (36.0-47.0); HEMOGLOBIN 10.1 g/dL (12.0-15.5); LYMPHOCYTES % (AUTO) 26.2 % (13-45); MEAN CORPUSCULAR HEMOGLOBIN 28.2 pg (27.0-33.4); MEAN CORPUSCULAR VOLUME 83 fl (80-97); MONOCYTES % (AUTO) 6.9 % (3-13); PLATELET COUNT 384 10^3/uL (150-450); RED BLOOD COUNT 3.57 10^6/uL (3.72-5.28); RED CELL DISTRIBUTION WIDTH 14.9 % (11.5-14.0); SEGMENTED NEUTROPHILS % (AUTO) 64.9 % (42-78); TOTAL CELLS COUNTED % (AUTO) 100 %; WHITE BLOOD COUNT 7.1 10^3/uL (4.0-10.5)
[2020-07-19 23:54] LABS: ALBUMIN 3.1 g/dL (3.5-5.0); ALKALINE PHOSPHATASE 79 U/L (38-126); ANION GAP 5 (5-19); ASPARTATE AMINO TRANSFERASE 12 U/L (14-36); BILIRUBIN,TOTAL 0.2 mg/dL (0.2-1.3); BLOOD UREA NITROGEN 9 mg/dL (7-20); CALCIUM 9.7 mg/dL (8.4-10.2); CARBON DIOXIDE 22 mmol/L (22-30); CHLORIDE 105 mmol/L (98-107); GLUCOSE 120 mg/dL (75-110); POTASSIUM 3.8 mmol/L (3.6-5.0); TOTAL PROTEIN 6.3 g/dL (6.3-8.2)
--- NOTE | 2020-07-20 01:38 | RADIOLOGY REPORT (SQ) ---
EXAM DESCRIPTION: XR CHEST 1 VIEW COMPLETED DATE/TME: 07/20/2020 01:21 CLINICAL HISTORY: 30 years, Female, cp COMPARISON: X-ray chest 02/10/2020 NUMBER OF VIEWS: TECHNIQUE: LIMITATIONS: None. FINDINGS: No evidence of pulmonary infiltrate or pleural effusion. The heart and mediastinum are unremarkable. Pulmonary vascularity appears normal. There is no significant change, as compared with the prior x-ray(s). IMPRESSION: No acute finding. copyright 2010 [employer]- All Rights Reserved
--- NOTE | 2020-07-20 06:56 | ER Document Report ---
Entered by YOLANDA SALINAS SCRIBE 07/20/20 0625 Acting as scribe for:IAN MORROW MD ED General - General Chief Complaint: Chest Pain Stated Complaint: CHEST PAIN Time Seen by Provider: 07/19/20 23:12 Mode of Arrival: Ambulatory Information source: Patient Notes: This 30 year old female patient who is , currently x28 weeks gestation by [facility] at [facility] with a history of hypertension presents to the ED today with complaints of intermittent reproducible sternal chest pain that started x2 days ago. Denies cough or fever with the chest pain. She describes the pain as a tingling/burning sensation and states that lying on her side makes it hurt. She states that she thinks that she may have pulled a muscle. Last menstrual period was in 12/2019. TRAVEL OUTSIDE OF THE [place] IN LAST 30 DAYS: No - Related Data Allergies/Adverse Reactions: No Known Allergies Allergy (Verified 02/10/20 13:45) Home Medications: prenatals. feSO4. labetalol 300mg ? tid. baby asa Past Medical History - General Information source: Patient - Social History Smoking Status: Never Smoker Cigarette use (# per day): No Chew tobacco use (# tins/day): No Smoking Education Provided: No Frequency of alcohol use: None Drug Abuse: None Lives with: Family Family History: Reviewed & Not Pertinent - Past Medical History Cardiac Medical History: Reports: Hx Hypertension - Immunizations Immunizations up to date: Yes Hx Diphtheria, Pertussis, Tetanus Vaccination: Yes Review of Systems - Review of Systems Constitutional: See HPI. denies: Fever EENT: No symptoms reported Cardiovascular: See HPI, Chest pain - reproducible Respiratory: See HPI. denies: Cough Gastrointestinal: No symptoms reported Genitourinary: No symptoms reported Female Genitourinary: See HPI, Last menstrual period - 12/2019, Musculoskeletal: No symptoms reported Skin: No symptoms reported Hematologic/Lymphatic: No symptoms reported Neurological/Psychological: No symptoms reported -: Yes All other systems reviewed and negative Physical Exam - Vital signs Vitals: Temp Pulse Resp BP Pulse Ox 98.1 F 85 18 147/80 H 97 07/19/20 23:05 07/19/20 23:05 07/19/20 23:05 07/19/20 23:05 07/19/20 23:05 - General General appearance: Alert In distress: None - HEENT Head: Normocephalic, Atraumatic Eyes: Normal Extraocular movements intact: Yes Pupils: PERRL Neck: Normal, Supple - Respiratory Respiratory status: No respiratory distress Chest status: Tender - Reproducible upper sternum tenderness to palpation Breath sounds: Normal Chest palpation: Normal - Cardiovascular Rhythm: Regular Heart sounds: Normal auscultation Murmur: No - Abdominal Inspection: Gravid female, Obese Distension: No distension Bowel sounds: Normal Tenderness: Nontender - Abdomen soft Organomegaly: No organomegaly - Back Back: Normal, Nontender - Extremities General upper extremity: Normal inspection General lower extremity: Normal inspection. No: Edema - Neurological Neuro grossly intact: Yes Orientation: AAOx4 [place] Coma Scale Eye Opening: Spontaneous [place] Coma Scale Verbal: Oriented [place] Coma Scale Motor: Obeys Commands [place] Coma Scale Total: 15 - Psychological Associated symptoms: Normal affect, Normal mood - Skin Skin Temperature: Warm Skin Moisture: Dry Skin Color: Normal Course - Vital Signs Vital signs: Temp Pulse Resp BP Pulse Ox 98.2 F 80 18 141/73 H 100 07/20/20 06:58 07/20/20 06:58 07/20/20 06:58 07/20/20 06:58 07/20/20 06:58 - Laboratory Results Result Diagrams: 07/19/20 23:30 07/19/20 23:30 Laboratory Results Interpreted: 07/19/20 07/19/20 23:30 23:30 RBC 3.57 L Hgb 10.1 L Hct 29.7 L RDW 14.9 H Sodium 132.2 L Creatinine 0.49 L Glucose 120 H AST 12 L Albumin 3.1 L Critical Laboratory Results Reviewed: No Critical Results - Radiology Results Radiology Results Interpreted: 07/20/20 16:23 Chest x-ray is unremarkable. Critical Radiology Results Reviewed: No Critical Results Discharge - Discharge Clinical Impression: Chest wall pain, 28 weeks gestation of High blood pressure Qualifiers: Hypertension type: essential hypertension Qualified Code(s): I10 - Essential ( primary) hypertension Condition: Stable Disposition: HOME, SELF-CARE Additional Instructions: Chest Wall Pain Your chest pain has been diagnosed as coming from the chest wall. This is often caused by straining the muscles or joints in the chest during physical activity, direct trauma, coughing, or vigorous vomiting. Persons with arthritis are especially prone to this type of pain, due to inflammation of the cartilage joints near the breast bone. Occasionally, no cause can be found. Rest from strenuous physical activity. This kind of chest pain is usually made worse by movement of the chest. If the pain is new, and seems to be due to muscle strain, cold packs can help. Otherwise, apply gentle warmth to the painful area for 15 minutes every hour or two. You should contact the doctor immediately if things change. Further evaluation is needed if you develop a fever or cough, if the nature of the pain changes, or if you become short of breath. You may safely take Tylenol for chest wall discomfort. Moist heat may help some. Try to avoid activities that make your chest wall hurt more. Follow-up with your primary care provider if not improving. RETURN TO THE EMERGENCY ROOM IF ANY NEW OR WORSENING SYMPTOMS. I personally performed the services described in the documentation, reviewed and edited the documentation which was dictated to the scribe in my presence, and it accurately records my words and actions.
[2020-07-20 07:00] VITALS: BP 141/73
--- NOTE | 2020-07-20 11:52 | EKG REPORT ---
SEVERITY:- ABNORMAL ECG - SINUS RHYTHM CONSIDER LEFT VENTRICULAR HYPERTROPHY : Confirmed by: Donal Donohue MD 20-Jul-2020 11:52:21
== END 2020-07-20 07:00 | disposition home or self-care (01) ==
LOC: ER 22:44
DX: O26.893 Other specified pregnancy related conditions, third trimester (principal); R07.89 Other chest pain; R20.8 Other disturbances of skin sensation; R20.2 Paresthesia of skin; O16.3 Unspecified maternal hypertension, third trimester; Z3A.28 28 weeks gestation of pregnancy; Z79.899 Other long term (current) drug therapy; Z79.82 Long term (current) use of aspirin
CPT/HCPCS: 36415; 71045; 80053; 84484; 85025; 93005; 93010; 99285